=== PATIENT | male | born 1990 ===

== ENCOUNTER 2018-05-28 13:01 | Day surgery (SDC) | payer OTHER ==
[2018-05-28 13:02] VITALS: BMI 32.1
[2018-05-28 14:24] LABS: BASO % 0.2 % (0.0-2.0); EOS # 0.2 K/uL (0.0-0.7); EOS % 2.6 % (0.0-4.0); HEMOGLOBIN 14.6 g/dL (12.0-18.0); LYMPH % 43.7 % (20.0-40.0); MEAN CELL VOLUME 80.3 fL (80.0-94.0); MEAN CORPUSCULAR HEMOGLOBIN 27.8 pg (27.0-31.0); MEAN CORPUSCULAR HGB CONC 34.6 g/dL (33.0-37.0); MEAN PLATELET VOLUME 6.5 fL (7.2-11.7); MONO # 0.7 K/uL (0.0-0.8); MONO % 9.8 % (0.0-10.0); NEUT % 43.7 % (50.0-75.0); RBC 5.25 Mil/uL (4.40-5.90); RED CELL DISTRIBUTION WIDTH 13.2 % (11.5-14.5); WHITE BLOOD COUNT 6.9 K/uL (4.8-10.8)
[2018-05-28] MEDS ORDERED: Lidocaine 2% Jelly (Uro-Jet) ONE (14:27)
[2018-05-28] MEDS ORDERED: Iohexol 240 (50 ml) ONE (14:27)
[2018-05-28] MEDS ORDERED: cefTRIAXone 1 gm 1 GM/100 ML BAG IVPB ONE (14:27)
[2018-05-28 14:34] LABS: SQUAMOUS EPITHIAL < 1 /hpf (0-5); URINE BILIRUBIN NEGATIVE (NEGATIVE); URINE BLOOD 2+ (NEGATIVE); URINE CLARITY Clear (Clear); URINE COLOR Straw (YELLOW); URINE GLUCOSE (UA) NORMAL (Normal); URINE LEUKOCYTE ESTERASE 2+ Leu/uL (Negative); URINE PROTEIN NEGATIVE (NEGATIVE); URINE UROBILINOGEN NORMAL mg/dL (0.2-1.0)
[2018-05-28 14:36] LABS: BLOOD UREA NITROGEN 12 mg/dL (9-20); GFR NON-AFRICAN AMERICAN > 60
[2018-05-28 14:39] LABS: ALB/GLOB RATIO 1.2 (1.0-2.1); ALBUMIN 4.1 g/dL (3.5-5.0); ALT/SGPT 67 U/L (21-72); AST/SGOT 58 U/L (17-59)
[2018-05-28] MEDS ORDERED: Gentamicin 80 mg in 0.9% NS 80 MG/100 ML BAG IVPB ONE (15:19)
[2018-05-28] MEDS ORDERED: Midazolam 2 MG/2 ML VIAL ONE (15:22)
[2018-05-28] MEDS ORDERED: Propofol 10 mg/ml Inj (20 ML) ONE (15:23)
[2018-05-28] MEDS ORDERED: Oxycodone/Acetaminophen 5/325 mg Tab PO PRN (15:29)
[2018-05-28] MEDS ORDERED: Ciprofloxacin 400mg/200ml D5W 400 MG/200 ML BAG IVPB SCH (16:00)
[2018-05-28] MEDS ORDERED: ePHEDrine 50 mg/ml Inj ONE (16:01)
--- NOTE | 2018-05-28 16:52 | C.PDOC ---
History Of Present Illness 28 y/o male presents to the ED, sent in by Dr. Reyna Granger for persistent flank pain. Patient states he recently had lithotripsy and laser for kidney stone. He continues to have left-sided back pain after procedure. Denies any dysuria, fever, chills, nausea, or vomiting. Time Seen by Provider: 05/28/18 13:54 Chief Complaint (Nursing): Male Genitourinary History Per: Patient History/Exam Limitations: no limitations Onset/Duration Of Symptoms: Persistent Current Symptoms Are (Timing): Still Present Quality Of Discomfort: "Pain" Past Medical History Reviewed: Historical Data, Nursing Documentation, Vital Signs Vital Signs: Last Vital Signs Temp 98.3 F 05/28/18 13:09 Pulse 70 05/28/18 14:41 Resp 18 05/28/18 14:41 BP 112/84 05/28/18 14:41 Pulse Ox 98 05/28/18 14:41 - Medical History PMH: Kidney Stones Other Surgeries: Lithotripsy Family History: States: No Known Family Hx - Social History Hx Alcohol Use: No Hx Substance Use: No Review Of Systems Except As Marked, All Systems Reviewed And Found Negative. Constitutional: Negative for: Fever, Chills Cardiovascular: Negative for: Chest Pain Respiratory: Negative for: Shortness of Breath Gastrointestinal: Negative for: Nausea, Vomiting, Diarrhea Genitourinary: Negative for: Dysuria, Frequency, Incontinence, Hematuria Musculoskeletal: Positive for: Back Pain Neurological: Negative for: Weakness, Dizziness Physical Exam - Physical Exam Appears: Non-toxic, No Acute Distress Skin: Normal Color, Warm, Dry Head: Atraumatic, Normacephalic Eye(s): bilateral: Normal Inspection, PERRL, EOMI Oral Mucosa: Moist Neck: Normal ROM Chest: Symmetrical Cardiovascular: Rhythm Regular, No Murmur Respiratory: Normal Breath Sounds, No Rales, No Rhonchi, No Wheezing Gastrointestinal/Abdominal: Soft, No Tenderness, No Distention, No Guarding Back: CVA Tenderness (Left), No Vertebral Tenderness Extremity: Bilateral: Atraumatic, Normal Color And Temperature, Normal ROM Pulses: Left Dorsalis Pedis: Normal, Right Dorsalis Pedis: Normal Neurological/Psych: Oriented x3 ED Course And Treatment - Laboratory Results Result Diagrams: 05/28/18 14:21 05/28/18 14:21 O2 Sat by Pulse Oximetry: 98 (RA) Pulse Ox Interpretation: Normal Medical Decision Making Medical Decision Making: Impression: Persistent pain Plan: --Labs --Paged patient's urologist [id number] Reyna Granger, patient to be admitted for same day surgery SDS. Disposition Counseled Patient/Family Regarding: Diagnosis - Disposition Disposition: HOSPITALIZED Disposition Time: 14:12 Condition: GOOD - Clinical Impression Clinical Impression: Renal calculus - Scribe Statement The provider has reviewed the documentation as recorded by the Chela Figueroa Provider Attestation: All medical record entries made by the Chela were at my direction and personally dictated by me. I have reviewed the chart and agree that the record accurately reflects my personal performance of the history, physical exam, medical decision making, and the department course for this patient. I have also personally directed, reviewed, and agree with the discharge instructions and disposition.
[2018-05-28] MEDS ORDERED: HYDROmorphone 0.5 mg/0.5 ml ISec ONE ×2 (16:55→17:36)
[2018-05-28] MEDS: HYDROmorphone 0.5 mg/0.5 ml ISec IVP PRN ×2 (16:55→17:05)
[2018-05-28] MEDS ORDERED: HYDROmorphone 0.5 mg/0.5 ml ISec IVP PRN ×2 (17:36→17:37)
[2018-05-28 18:17] VITALS: RESP 18
[2018-05-28 18:44] VITALS: BP 113/69; PULSE 73; TEMP 97.9
[2018-05-29 00:05] VITALS: O2SAT 98
--- NOTE | 2018-05-29 09:15 | RAD ---
Date of service: 05/28/2018 PROCEDURE: Intraoperative Fluoroscopy. HISTORY: LEFT URETERAL STONE FINDINGS: Fluoroscopic assistance was provided. Fluoroscopy time = 32.2 sec. Radiation dose = 1.19 mGy-cm. Please refer to the operative report from COLBY Albrecht, , MD [facility].
--- NOTE | 2018-05-29 16:58 | RAD ---
Date of service: 05/28/2018 HISTORY: LEFT URETERAL STONE COMPARISON: None available. FINDINGS: BOWEL: Normal. No obstruction. No free air. BONES: Normal. OTHER FINDINGS: Extensive left urolithiasis burden projects over the left upper quadrant. A 3.6 cm x 8.0 mm calculus collection is present this projects over the expected position of the left intra and extra renal pelvis. Some calculus fragmentation of it along its inferior aspect is possible making 2 smaller fragments-the measurements described above are of the conglomerate of both. Two smaller calculi projecting over the left upper quadrant-involving the left mid and lower pole of the kidney as well as projecting over the left proximal ureteral stent here. The proximal left ureteral stent is in the expected location of the intrarenal pelvis and/or towards the left upper collecting system. The distal projects over the expected bladder. The bladder appears mild-moderately distended. A few left hemipelvic phleboliths 1 mm or less in size are noted. Bilateral inferior sacroiliac sclerotic arthrosis left greater than right noted. IMPRESSION: Left calculus burden as detailed above. Double-J left ureteral stent in place as above.
--- NOTE | 2018-05-30 06:44 | HP ---
UROLOGY ADMISSION REASON FOR ADMISSION: Emergently for severe renal colic and stent pain. We are going to see the plan listed above. HISTORY OF PRESENT ILLNESS: This is a very pleasant gentleman who initially presented with a gigantic stone. He refuses percutaneous nephrostolithotomy. We initially just managed it with ESWL with almost no results. We then did cysto, stent, ureteroscopy. These were all done elsewhere. Now, he has the stent in, and he states the stent is bothering him. He has not really passed so much stone so we are planning procedure today to do a cystoscopy, ureteroscopy, and for the laser lithotripsy by x-ray criteria. I have looked to the x-rays closely, but the stones looks a little broken and it is definitely a different size. We will need to do a more aggressive treatment (I have also discussed the patient my real best recommendation for him is to do a percutaneous nephrostolithotomy) it is about 2 centimeters, and at this point, it is not responding well. And that would be my recommendation. I did discuss with him other options, particularly second opinions, going to near . I discussed many many options. He is here today for further plan. Past medical and surgical history, otherwise, remarkable. A 28-year-od gentleman. Socially, lives here with his . He is also . He worked . Review of systems, as above. PHYSICAL EXAMINATION: GENERAL: A well-nourished male, in no apparent distress. VITAL SIGNS: Within normal limits, included in the chart. LUNGS: Clear. HEART: Normal S1, S2. GENITOURINARY: Normal male phallus. No testicular masses. ABDOMEN: Nontender. No flank mass appreciated. The abdomen is distended. No evidence of rebound or guarding. LABORATORY DATA: Charted. DIAGNOSES: Heavy stone burden, urolithiasis, stent pain, and hematuria. Plan as above. This is an relatively emergent admission on this 28-year-old gentleman. He is now progressing well. The plan for today is as follows: 1. Antibiotic prophylaxis. 2. Cystoscopy. 3. Ureteroscopy. I am arranging for a flexible and a rigid ureteroscope breaking many stones as possible, and now we are going to plan to put an actually a larger bore double J-stent, and see if this will drain better and see if it will improve the patient's symptoms. Then further plans, we will follow. Perhaps, after this, we will consider a shock wave lithotripsy, although my best recommendation for the patient is to consider a second opinion, may be somebody else can help him with ureteroscopy, laser lithotripsy, or actually a percutaneous nephrolithotomy. Further plans to follow depending on the findings. ADDENDUM: The procedure actually went terrifically well. We are able to laser lot of the stones. The stone sites looks much different by x-ray criteria, and we also put an 8-Thai double J-stent. The plan now therefore in this addendum is antibiotics. Monitor the stone output, stone analysis, and then plan for shock wave when he is feeling better. Dominik Granger MD
--- NOTE | 2018-06-06 05:24 | OP ---
PROCEDURE DATE: 05/28/2018 UROLOGY OPERATIVE REPORT PREOPERATIVE DIAGNOSES: Urolithiasis, hematuria, tremendous heavy stone burden. All on the left side. POSTOPERATIVE DIAGNOSES: Urolithiasis, hematuria, tremendous heavy stone burden. All on the left side. Much improved as far as I could tell for the stones. Much less stones than initially seen. PROCEDURES TODAY: Cystoscopy, removal of left double-J stent, left ureteroscopy, left renoscopy done with a rigid ureteroscope and also with flexible ureteroscope and laser lithotripsy of the stone and insertion of a left double-J stent. COMPLICATIONS: There were no complications. BLOOD LOSS: Less than 10 mL. At the termination of procedure, the patient has even less stones. We are making real progress on the stone lasting. At the termination of the procedure, the patient has a good double-J stent in place. UROLOGY OPERATIVE FINDINGS: 1. Normal anterior urethra, no stricture. 2. The veru is minimally visually occlusive. All within normal limits for age. 3. The ureteral orifice is within normal limits. 4. The stones were identified in the left proximal kidney, and we were able to laser them. 4. We also did a retrograde and we were able to see that with the flexible scope. We actually basically went to every calyx, and we were able to laser it really well. The procedure went extremely well. There were no complications. INDICATIONS: See history and physical for the details. Very pleasant gentleman here now. We initially started with a shockwave. We did a ureteroscopy and laser lithotripsy. I had a chance to review the films. Despite the fact that the x-ray report officially read, it does not make much comment and in fact, it even says that there is no film for comparison or set of films in the computer. I had a chance to review the films and it looks much improved. The patient is beginning to pass stones. I discussed the options. He is getting little impatience with the stent in place and it is causing some discomfort, and therefore I will bring him back sooner rather than later and give him a little more time, but we know we blasted the stones well last time at the stone center. It is a heavy stone burden. I had explained to the patient to begin with my recommendation was to consider percutaneous nephrostolithotomy whether by me or whether another urologist. I had also discussed with him the possibility for going through ureteroscopy, laser lithotripsy in [facility]. I have given him the name of Dr. Aubrey Macias. But after discussing the options with the patient and his , they preferred to stay here, and I told them we can take care of it. It may take a few trips. But we would be able to relieve him of his stone burden. DESCRIPTION OF PROCEDURE: After obtaining informed consent, the patient was brought into the OR, placed on the table. Routine monitors were placed. A time-out was called to confirm the patient, positioning, etc. The patient was wearing Venodyne boots. Time-out was called. Antibiotics were given. Positioning, we confirmed the patient. Prior to beginning procedure, we also did a candy catcher films which confirmed the stent, the stones, etc. Under sterile technique, the cystoscope was introduced. The entire procedure was done with a camera and also with the fluoroscopic imaging. My assistant auto center manager was able to see well what we were doing and we were able to identify everything. There was a normal anterior urethra, no strictures. [place] was visually not occlusive. There was basically a small little prostate. . The ureteral orifice was identified easily with the old stent removed. We pulled it out and we passed the wire up to the kidney without any difficulty. We now went adjacent with a semi-rigid ureteroscope. He had many stones within the ureter, and they were all small in size. They should pass as the best way by themselves. We now introduced rigid ureteroscope up to the renal pelvis. We put a second wire through it. We now removed it under direct vision. We put a double-J stent once we put a flexible ureteroscope. Basically, with the flexible ureteroscope, I was unable to go through every calyx as easily. We had great visualization. We began lasering when we identified the stones. We just lasered and lasered as quickly as efficiently as we can to break up all the stones. We used the holmium YAG laser. We set our settings with a frequency of about 3 to 5 MHz and a power of about 2 joules. As best, he tolerated with the most amount of energy and slowest frequency to break the stone. We broke really well. We fragmented nicely. We had multiple pictures in the chart. After we worked a while on the some stones, there were really not any major gigantic stones left over that had not broken. But at this point, also the vision became a little bit blurry. So we decided to terminate the procedure. But it looked like we had made tremendous amounts of progress. We had a wire up in the kidney. We put a double-J stent in. We confirmed our positioning. We had the safety wire and then we had a second wire. We put the double-J stent with the second wire. We confirmed our positioning. The patient tolerated the procedure well without complications. The bladder was emptied and the cystoscope was removed. NOTE: We left the patient with the stent with no dangles. The patient tolerated the procedure well without complications. ADDENDUM: We will provide antibiotics for the patient. We are also going to see the followup x-ray and once we have more information on the patient in this regard, we are going to plan for further treatment. We are going to see in ESWL and then shockwave lithotripsy and then stent removal versus ureteroscopy. I explained to the patient that we were doing tremendous stone burden. We are going to try to decrease the number of the procedures. We are going to see how the patient does clinically. Today's procedure itself went well. No complications. We will follow the patient. We will send him home with antibiotic prophylaxis. He is feeling well on antibiotic prophylaxis and analgesics as needed. Dominik Granger MD
--- NOTE | 2018-06-06 07:39 | HP ---
UROLOGY URGENT ADMISSION REASON FOR ADMISSION: Treatment of kidney stones. HISTORY OF PRESENT ILLNESS: Mr. Reynolds is a very pleasant young gentleman who is being admitted now for further treatment of stones. Initially see previous dictated notes. The [facility] [place] [facility] just a shockwave lithotripsy. At that time, I explained to the patient, he has a heavy stone burden, and I did not think this would work, but he wanted to give it a shot. We did a shock-wave lithotripsy with no stent for a very large stone. Since then, he had passed very few stones. Now, we will bring him in for a cystoscopy, ureteroscopy, laser lithotripsy of his stones, and exchange of his stent. Then further plans will follow. I explained to him with such a large stone burden, we even discussed the idea of percutaneous nephrolithotomy. We also discussed the idea of going for a second opinion, going to [facility]. I mentioned to him Dr. Aubrey Macias where I sent some of my complicated stones. But after discussing all the various options, he is here now today for ureteroscopy and laser lithotripsy. See below. PAST MEDICAL/SURGICAL HISTORY: Essentially unremarkable. No history of [place] or CVA. SOCIAL HISTORY: Essentially unremarkable. , comes with his to the office visit. Otherwise unremarkable. No history of alcohol abuse. No history of drug abuse. REVIEW OF SYSTEMS: No weight loss, chest pain, shortness of breath. He has been feeling not so well since he had this initial set of treatments today. But now, he has been feeling better with the stent in place. See previous notes. We had brought him initially to the [facility] center for shockwave, and then we brought him for a cystoureteroscopy. He is here now for followup. Since that last treatment, he has been passing a lot of stones. We are here now to do more. I explained to the patient that percutaneous treatments may be less numbers of treatment but a little more invasive, possibility to do ureteroscopy, lithotripsy. See the plans as below. He is here today for a second ureteroscopy. Past medical and surgical history is as listed. MEDICATIONS: See chart. ALLERGIES: SEE CHART. PHYSICAL EXAMINATION: GENERAL: Well-nourished male in no apparent distress. VITAL SIGNS: Currently, vital signs are within normal limits. LUNGS: Clear. HEART: Normal S1 and S2. ABDOMEN: Overall soft. LYMPHATIC: There is no cervical or axillary lymphadenopathy. GENITOURINARY: He has normal phallus. No discharge. No testicular masses. RECTAL: Deferred to 10 to 20 g of prostate, really an unremarkable prostate. LABORATORY DATA: See chart. CT scan, x-rays all noted in the chart. DIAGNOSES: 1. Urolithiasis. 2. Hematuria. 3. Hydronephrosis. 4. Intermittent flank pain with tremendously heavy stone burden. PLAN: As follows. I discussed the options with the patient at length. He previously had a shock-wave lithotripsy that is really not much helpful. I discussed that with the patient. I discussed with him specifically what I mentioned. I gave pictures and I discussed with him the AUA guidelines and recommendations, but at that time, he did not want a stent. I also discussed with him the ideal way in terms of guidelines, the possibility of percutaneous nephrostolithotomy versus ureteroscopy laser lithotripsy and the need for recurrent treatment. At this point, we are going to bring him to the hospital. We are going to bring him to the OR for cystoscopy, ureteroscopy, laser lithotripsy, and a stent exchange. We already did last week. We made impact upon the stone. So the plans today are as follows. 1. Antibiotic prophylaxis. 2. Ureteroscopy, laser lithotripsy, and possible stone basketing, and stent exchange and then further plans for followup. ADDENDUM: In terms of the reading on the x-ray films, there is no report. I have made a phone call to Dr. Vargas. ____ late this week. Noting that in his report it says no previous stones for comparison, but in fact the patient does have some previous stones here and to me it looks markedly different. We are going to await his return and then readjust the films and maybe re-evaluate films from an instructional standpoint. All these have been explained to the patient and his in great detail. We are going to plan to proceed. Dominik Granger MD
== END 2018-05-28 18:50 | disposition home or self-care (01) ==
LOC: C.ER 13:01 → C.SDS 13:01
PROVIDERS: ATTEND Urology
DX: N13.2 Hydronephrosis with renal and ureteral calculous obstruction (principal); Z87.442 Personal history of urinary calculi
CPT/HCPCS: 36415; 52356; 74018; 80053; 81001; 85025; 87086; 99285; C1769; C2617; J0696; J0744; J1170; J1580; J2405; J7120

== ENCOUNTER 2018-05-31 19:12 | Emergency (ER) | payer OTHER ==
[2018-05-31 19:12] VITALS: BMI 32.1
[2018-05-31] MEDS ORDERED: Sodium Chloride 0.9% 1,000 ML IV SCH (19:45)
[2018-05-31 19:59] LABS: BASO # 0.1 K/uL (0.0-0.2); EOS # 0.2 K/uL (0.0-0.7); EOS % 1.5 % (0.0-4.0); HEMOGLOBIN 14.4 g/dL (12.0-18.0); LYMPH # 3.4 K/uL (1.0-4.3); LYMPH % 27.5 % (20.0-40.0); MEAN CELL VOLUME 80.1 fL (80.0-94.0); MEAN CORPUSCULAR HEMOGLOBIN 27.5 pg (27.0-31.0); MEAN CORPUSCULAR HGB CONC 34.4 g/dL (33.0-37.0); MEAN PLATELET VOLUME 6.6 fL (7.2-11.7); MONO # 1.2 K/uL (0.0-0.8); MONO % 10.1 % (0.0-10.0); NEUT # 7.3 K/uL (1.8-7.0); NEUT % 59.9 % (50.0-75.0); RBC 5.24 Mil/uL (4.40-5.90); RED CELL DISTRIBUTION WIDTH 13.1 % (11.5-14.5); WHITE BLOOD COUNT 12.2 K/uL (4.8-10.8)
[2018-05-31 20:07] LABS: SQUAMOUS EPITHIAL 9 /hpf (0-5); URINE BILIRUBIN NEGATIVE (NEGATIVE); URINE BLOOD 3+ (NEGATIVE); URINE CLARITY Hazy (Clear); URINE COLOR Yellow (YELLOW); URINE GLUCOSE (UA) NORMAL (Normal); URINE HYALINE CAST 0-2 /lpf (0-2); URINE LEUKOCYTE ESTERASE 2+ Leu/uL (Negative); URINE PROTEIN 2+ mg/dL (NEGATIVE); URINE UROBILINOGEN NORMAL mg/dL (0.2-1.0)
[2018-05-31 20:22] LABS: ALB/GLOB RATIO 1.2 (1.0-2.1); ALBUMIN 4.2 g/dL (3.5-5.0); ALT/SGPT 74 U/L (21-72); AST/SGOT 78 U/L (17-59); BLOOD UREA NITROGEN 12 mg/dL (9-20); CALCIUM 9.3 mg/dl (8.6-10.4); GFR NON-AFRICAN AMERICAN > 60; LIPASE 32 U/L (23-300)
[2018-05-31 22:27] VITALS: BP 105/69; PULSE 69; RESP 18; TEMP 98.4; O2SAT 97
--- NOTE | 2018-05-31 22:52 | C.PDOC ---
History Of Present Illness 28 year old male presents to the ED c/o right sided flank and abdominal pain for the past 1 day. Patient had recent left urethral stent . Patient denies fever, chills, nausea, vomit, diarrhea, injury, fall, trauma. Time Seen by Provider: 05/31/18 19:22 Chief Complaint (Nursing): Abdominal Pain History Per: Patient History/Exam Limitations: no limitations Onset/Duration Of Symptoms: Days (1) Current Symptoms Are (Timing): Still Present Location Of Pain/Discomfort: RUQ, RLQ Radiation Of Pain To:: Back Quality Of Discomfort: "Pain" Associated Symptoms: Urinary Symptoms. denies: Nausea, Vomiting, Diarrhea Recent travel outside of the [place]: No Additional History Per: Patient Past Medical History Reviewed: Historical Data, Nursing Documentation, Vital Signs Vital Signs: Last Vital Signs Temp 98.4 F 05/31/18 22:15 Pulse 69 05/31/18 22:15 Resp 18 05/31/18 22:15 BP 105/69 05/31/18 22:15 Pulse Ox 97 05/31/18 22:15 - Medical History PMH: Kidney Stones Surgical History: No Surg Hx Family History: States: Unknown Family Hx - Social History Hx Alcohol Use: No Hx Substance Use: No Review Of Systems Constitutional: Negative for: Fever, Chills Cardiovascular: Negative for: Chest Pain Respiratory: Negative for: Shortness of Breath Gastrointestinal: Positive for: Abdominal Pain. Negative for: Nausea, Vomiting, Diarrhea Musculoskeletal: Positive for: Back Pain Skin: Negative for: Rash Neurological: Negative for: Weakness, Numbness, Headache Physical Exam - Physical Exam Appears: Non-toxic, No Acute Distress Skin: Normal Color, Warm, Dry Head: Atraumatic, Normacephalic Eye(s): bilateral: Normal Inspection Oral Mucosa: Moist Neck: Normal ROM, Supple Chest: Symmetrical Cardiovascular: Rhythm Regular Respiratory: Normal Breath Sounds, No Rales, No Rhonchi, No Wheezing Gastrointestinal/Abdominal: Soft, No Tenderness, No Guarding, No Rebound Back: CVA Tenderness (bilateral ) Extremity: Normal ROM, No Tenderness, No Swelling Neurological/Psych: Oriented x3, Normal Speech, Normal Cognition Gait: Steady ED Course And Treatment - Laboratory Results Result Diagrams: 05/31/18 19:54 05/31/18 19:54 O2 Sat by Pulse Oximetry: 97 (ON RA) Pulse Ox Interpretation: Normal - CT Scan/US CT abd/pelvis Other Rad Studies (CT/US): Read By Radiologist, Radiology Report Reviewed CT/US Interpretation: EXAM: CT Abdomen without IV contrast. CLINICAL HISTORY: Right flank pain, r/u kidney stone. TECHNIQUE: Axial computed tomography images of the abdomen and pelvis without intravenous contrast. 3023 mGy-cm. CONTRAST: Without. COMPARISON: None provided. FINDINGS: LUNG BASES: There is a groundglass infiltrate involving the posterior basal segment of the right lung with multiple nodular densities within it. Scarring left pulmonary base. The heart is normal in size. Right posterior basal ground glass infiltrate in containing multiple nodular densities. Suggest noncontrast CT of the chest if the patient can breath-hold. LIVER: Unremarkable. GALLBLADDER AND BILE DUCTS: The gallbladder appears within normal limits. No radioopaque gallstones are seen. No biliary ductal dilatation is evident. PANCREAS: Unremarkable. SPLEEN: Unremarkable. ADRENAL GLANDS: Unremarkable. 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 The left side demonstrates multiple large calcifications. There is both a large calcification and the superior end of the double pigtail nephroureteral stent in the left renal pelvis. The distal end of the stent appears to be coiled at the UVJ. There is no hydronephrosis. 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 Distal end of left nephroureteral stent appears to be positioned in the UVJ. STOMACH AND BOWEL: Unremarkable appe arance of the stomach and bowel. No evidence of bowel obstruction. No evidence suggesting enteritis or colitis. APPENDIX: No evidence of acute appendicitis on CT examination. PERITONEUM: No free fluid. No free air. LYMPH NODES: No lymphadenopathy is evident. VASCULATURE: No evidence of abdominal aortic aneurysm. BONES: No aggressive appearing osseous lesion. No acute osseous pathology evident. MISCELLANEOUS: The right ureter is not identified. There are no suspicious right-sided calcifications to account for the patient's symptoms. 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 Distal end of left nephroureteral stent appears to be positioned in the UVJ. Right posterior basal ground glass infiltrate in containing multiple nodular densities. Suggest noncontrast CT of the chest if the patient can breath-hold. . Electronically signed on May 31, 2018 9:38:23 PM EST by: Nhan Farmer M.D., Certified by [facility] Medical Decision Making Medical Decision Making: Plan: * CT abd/pelvis * Labs * IV fluids * Toradol 30 mg IVP * Urine culture * UA Spoke with Dr. Elkin Yang, patient's antibiotics will be changed based on CT read. Patient will follow up tomorrow with Dr. Granger in morning in his office. Disposition - Disposition Referrals: Trey Granger MD [Staff Provider] - Disposition: HOME/ ROUTINE Disposition Time: 22:00 Condition: IMPROVED Additional Instructions: THOMAS STRANGE, thank you for letting us take care of you today. The emergency medical care you received today was directed at your acute symptoms. If you were prescribed any medication, please fill it and take as directed. It may take several days for your symptoms to resolve. Return to the Emergency Department if your symptoms worsen, do not improve, or if you have any other problems. Please contact your doctor or call one of the physicians/clinics you have been referred to that are listed on the Patient Visit Information form that is included in your discharge packet. Bring any paperwork you were given at discharge with you along with any medications you are taking to your follow up visit. Our treatment cannot replace ongoing medical care by a primary care provider outside of the emergency department. Thank you for allowing the [facility] team to be part of your care today. Follow up with Dr. Granger tomorrow morning for re-evaluation and further management. Prescriptions: levoFLOXacin [Levaquin] 500 mg PO DAILY #7 tab Instructions: Kidney Stones (DC) Forms: [employer] (Hebrew) - Clinical Impression Clinical Impression: Renal calculus - Scribe Statement The provider has reviewed the documentation as recorded by the Scribe Oli Busby All medical record entries made by the Scribe were at my direction and personally dictated by me. I have reviewed the chart and agree that the record accurately reflects my personal performance of the history, physical exam, medical decision making, and the department course for this patient. I have also personally directed, reviewed, and agree with the discharge instructions and disposition.
--- NOTE | 2018-06-01 08:53 | CT ---
Date of service: 05/31/2018 PROCEDURE: CT Abdomen and Pelvis without intravenous contrast HISTORY: right flank pain - stent on left COMPARISON: None. TECHNIQUE: Technique. Contrast dose: Radiation dose: Total exam DLP = 1023.6 mGy-cm. This CT exam was performed using one or more of the following dose reduction techniques: Automated exposure control, adjustment of the mA and/or kV according to patient size, and/or use of iterative reconstruction technique. FINDINGS: LOWER THORAX: Bibasilar infiltrates, right greater than left. LIVER: Unremarkable. No gross lesion or ductal dilatation. GALLBLADDER AND BILE DUCTS: Unremarkable. PANCREAS: Unremarkable. No gross lesion or ductal dilatation. SPLEEN: Unremarkable. ADRENALS: Unremarkable. No mass. 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 Left ureteral stent distal tip in the bladder. VASCULATURE: Unremarkable. No aortic aneurysm. No aortic atherosclerotic calcification or mural plaque present. BOWEL: Unremarkable. No obstruction. No gross mural thickening. APPENDIX: Unremarkable. Normal appendix. PERITONEUM: Unremarkable. No free fluid. No free air. LYMPH NODES: Unremarkable. No enlarged lymph nodes. BLADDER: Unremarkable. REPRODUCTIVE: Unremarkable. BONES: No acute fracture. OTHER FINDINGS: None. 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 Left ureteral stent distal tip in the bladder. Proximal limb in the left renal pelvis
== END 2018-05-31 22:27 | disposition home or self-care (01) ==
LOC: C.ER 19:12
DX: N20.0 Calculus of kidney (principal)
CPT/HCPCS: 74176; 80053; 81001; 83690; 85025; 87086; 96374; 99285; J1885; J7030

== ENCOUNTER 2018-06-05 03:09 | Inpatient (IN) | payer OTHER ==
--- NOTE | 2018-06-05 03:24 | C.PDOC ---
History Of Present Illness 28 year old male presents to the ED c/o right flank, lower back pain. Patient states he took Ibuprofen at 02:45 with no relief. Patient states he has been taking levaquin for a UTI. Patient had a STNt placed, lithotripsy done. Patient had a CT scan done on 05/31 which showed questionable right lower lobe infiltrate, horseshoe kidney and stent. Patient denies fever, chills, nausea, vomit, diarrhea, rash, weakness, numbness. Time Seen by Provider: 06/05/18 03:24 Chief Complaint (Nursing): Back Pain History Per: Patient History/Exam Limitations: no limitations Onset/Duration Of Symptoms: Days Current Symptoms Are (Timing): Still Present Quality Of Discomfort: "Pain" Previous Symptoms: Back Pain Recent travel outside of the [place]: No Additional History Per: Patient Past Medical History Reviewed: Historical Data, Nursing Documentation, Vital Signs Vital Signs: Last Vital Signs Temp 97.9 F 06/05/18 03:15 Pulse 100 H 06/05/18 03:15 Resp 22 06/05/18 03:15 BP 127/89 06/05/18 03:15 Pulse Ox 99 06/05/18 03:15 - Medical History PMH: Kidney Stones Surgical History: No Surg Hx Family History: States: Unknown Family Hx - Social History Hx Alcohol Use: No Hx Substance Use: No Review Of Systems Constitutional: Negative for: Fever, Chills Cardiovascular: Negative for: Chest Pain Respiratory: Negative for: Shortness of Breath Gastrointestinal: Positive for: Abdominal Pain. Negative for: Nausea, Vomiting, Diarrhea Genitourinary: Negative for: Dysuria Musculoskeletal: Positive for: Back Pain Skin: Negative for: Rash Neurological: Negative for: Weakness, Numbness Physical Exam - Physical Exam Appears: Non-toxic, No Acute Distress Skin: Warm, Dry Head: Normacephalic Eye(s): bilateral: Normal Inspection Oral Mucosa: Moist Neck: Supple Chest: Symmetrical Cardiovascular: Rhythm Regular Respiratory: No Rales, No Rhonchi, No Wheezing Gastrointestinal/Abdominal: Soft, No Tenderness, No Guarding, No Rebound Back: CVA Tenderness (bilateral) Extremity: Bilateral: Atraumatic, Normal Color And Temperature, Normal ROM Neurological/Psych: Oriented x3, Normal Speech, Normal Cognition Gait: Steady ED Course And Treatment - Laboratory Results Result Diagrams: 06/05/18 03:42 06/05/18 03:42 O2 Sat by Pulse Oximetry: 99 (ON RA) Pulse Ox Interpretation: Normal Progress Note: Plan: - VBG. - Labs. - IV fluids. - Toradol 30 mg IVP. - Zofran 4 mg IVP. - UA Disposition Counseled Patient/Family Regarding: Studies Performed, Diagnosis - Disposition Disposition Time: 03:24 Condition: FAIR Forms: [employer] (Syriac) - Clinical Impression Clinical Impression: Abdominal pain, Elevated liver enzymes - Scribe Statement The provider has reviewed the documentation as recorded by the Scribe Oli Busby All medical record entries made by the Scribe were at my direction and personally dictated by me. I have reviewed the chart and agree that the record accurately reflects my personal performance of the history, physical exam, medical decision making, and the department course for this patient. I have also personally directed, reviewed, and agree with the discharge instructions and disposition. Physician Patient Turnover Patient Signed Over To: Leigh Law Handoff Comments: pending us, re-eval and dispo
[2018-06-05] MEDS ORDERED: Sodium Chloride 0.9% 1,000 ML IV ONE ×2 (03:26→04:11)
[2018-06-05 03:27] VITALS: BMI 29.8
[2018-06-05] MEDS ORDERED: Sodium Chloride 0.9% 1,000 ML ONE ×2 (03:33→04:21)
[2018-06-05 03:53] LABS: BASO # 0.1 K/uL (0.0-0.2); BASO % 0.8 % (0.0-2.0); EOS # 0.2 K/uL (0.0-0.7); EOS % 2.5 % (0.0-4.0); HEMOGLOBIN 14.1 g/dL (12.0-18.0); LYMPH # 3.6 K/uL (1.0-4.3); LYMPH % 39.4 % (20.0-40.0); MEAN CELL VOLUME 81.1 fL (80.0-94.0); MEAN CORPUSCULAR HEMOGLOBIN 27.4 pg (27.0-31.0); MEAN CORPUSCULAR HGB CONC 33.7 g/dL (33.0-37.0); MEAN PLATELET VOLUME 6.4 fL (7.2-11.7); MONO # 1.1 K/uL (0.0-0.8); MONO % 11.9 % (0.0-10.0); NEUT # 4.1 K/uL (1.8-7.0); NEUT % 45.4 % (50.0-75.0); RBC 5.17 Mil/uL (4.40-5.90)
[2018-06-05 03:58] LABS: ALB/GLOB RATIO 1.2 (1.0-2.1); ALBUMIN 4.2 g/dL (3.5-5.0); ALT/SGPT 214 U/L (21-72); AST/SGOT 113 U/L (17-59); BLOOD UREA NITROGEN 12 mg/dL (9-20); CALCIUM 9.3 mg/dl (8.6-10.4); GFR NON-AFRICAN AMERICAN > 60; LIPASE 45 U/L (23-300)
[2018-06-05 04:15] LABS: VENOUS BLOOD GAS BASE EXCESS -1.2 mmol/L (0.0-2.0); VENOUS BLOOD GAS PCO2 39 mmHg (40-60); VENOUS BLOOD GAS PO2 50 mm/Hg (30-55); VENOUS BLOOD PH 7.39 (7.32-7.43)
[2018-06-05 04:38] LABS: SQUAMOUS EPITHIAL < 1 /hpf (0-5); URINE BACTERIA RARE (<OCC); URINE BILIRUBIN NEGATIVE (NEGATIVE); URINE BLOOD 2+ (NEGATIVE); URINE COLOR Yellow (YELLOW); URINE GLUCOSE (UA) NORMAL (Normal); URINE LEUKOCYTE ESTERASE 3+ Leu/uL (Negative); URINE PROTEIN NEGATIVE (NEGATIVE); URINE UROBILINOGEN NORMAL mg/dL (0.2-1.0)
[2018-06-05 04:41] LABS: URINE CLARITY Hazy (Clear)
--- NOTE | 2018-06-05 09:18 | US ---
Date of service: 06/05/2018 HISTORY: ruq pain, elevated liver enzymes COMPARISON: None. TECHNIQUE: Sonographic evaluation of the right upper quadrant of the abdomen. FINDINGS: LIVER: Measures 13.7 cm in length. Normal echogenicity of the liver parenchyma. No mass. No intrahepatic bile duct dilatation. GALLBLADDER: The gallbladder is contracted and otherwise unremarkable appearing. COMMON BILE DUCT: Measures 2.5 mm. No stones. No dilatation. PANCREAS: The tail of the pancreas is obscured by overlying bowel gas with remainder unremarkable. 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 No definitive obstructive uropathy. Prior left ureteral stent is not clearly identified within the left-sided moiety as previously demonstrated on CT. No perinephric fluid collection appreciable. AORTA: No aneurysmal dilatation. IVC: Unremarkable. OTHER FINDINGS: None . IMPRESSION: No definite pattern of biliary tree dilatation with normal CBD caliber 2.5 mm. The gallbladder is contracted as well. No pericholecystic fluid collection or cholelithiasis. Evaluation the wall gallbladder is poor due to contraction. Horseshoe kidney identified as discussed above without hydronephrosis. Prior left double-J ureteral stent not clearly identified within the left-sided moiety as demonstrated by CT previously.
[2018-06-05] MEDS ORDERED: Iodixanol 320 MG/ML 100 ML BOTTLE IV ONE (10:26)
[2018-06-05] MEDS ORDERED: Enoxaparin 80 mg Syringe SC STA (11:37)
[2018-06-05] MEDS ORDERED: HYDROmorphone 0.5 mg/0.5 ml ISec IVP STA (11:37)
--- NOTE | 2018-06-05 11:37 | CT ---
Date of service: 06/05/2018 PROCEDURE: CT Chest with contrast (Pulmonary Angiogram) HISTORY: R CHEST PAIN r/o PE COMPARISON: None available. TECHNIQUE: Axial computed tomography images were obtained of the chest in the pulmonary arterial phase of enhancement. Coronal and sagittal reformatted images were created and reviewed. Intravenous contrast dose: Visipaque 320, 100 cc Radiation dose: Total exam DLP = 631.63 mGy-cm. This CT exam was performed using one or more of the following dose reduction techniques: Automated exposure control, adjustment of the mA and/or kV according to patient size, and/or use of iterative reconstruction technique. FINDINGS: PULMONARY ARTERIES: Positive for pulmonary artery embolus affecting right lower lobe median and small branches with associated possible infarct or limited asymmetric atelectasis right lower lobe base. Linear atelectasis or fibrosis is seen at the lingula. AORTA: No acute findings. No thoracic aortic aneurysm. No aortic atherosclerotic calcification or mural plaque present. LUNGS: No discrete mass. See discussion in pulmonary artery section above as well. PLEURAL SPACES: Unremarkable. No effusion or pneumothorax. HEART: Trace residual thymic tissue is seen in the anterior upper mediastinum with cardiac size normal. No pulmonary vascular congestion. No pericardial effusion. No distention of the right lateral ventricle or definitive tension on the interventricular septum. The thoracic inlet appears unremarkable. LYMPH NODES: No significant lymphadenopathy appreciated. BONES, CHEST WALL: Unremarkable. No fracture or destructive lesion OTHER FINDINGS: Unremarkable. IMPRESSION: 1. Positive pulmonary embolus right lower lobe medium and small pulmonary branches with associated possible infarct in limited subsegmental right lower lobe versus atelectasis. Linear atelectasis or fibrosis left lower lobe. 2. No evidence of significantly elevated right heart pressures. Findings discussed with Dr. Law with written down and read back verification 06/05/2018 11:20 a.m..
--- NOTE | 2018-06-05 11:47 | CT ---
Date of service: 06/05/2018 PROCEDURE: CT Abdomen and Pelvis with contrast HISTORY: R FLANK PAIN, ABN LFT COMPARISON: None. TECHNIQUE: Following the intravenous administration of iodinated contrast material, a CT examination of the abdomen and pelvis performed from the domes of the diaphragms to the symphysis pubis with reformatted datasets provided in axial, sagittal and coronal planes. Oral contrast was not administered as per referring physician request. Coronal and sagittal reformats were generated. Contrast dose: None added specifically for this exam. Study performed following CT angiogram chest. Radiation dose: Total exam DLP = 1022.67 mGy-cm. This CT exam was performed using one or more of the following dose reduction techniques: Automated exposure control, adjustment of the mA and/or kV according to patient size, and/or use of iterative reconstruction technique. FINDINGS: LOWER THORAX: Right lower lobe infarct or atelectasis. Please see separate chest CT with contrast also performed 06/05/2018. LIVER: Unremarkable. No gross lesion or ductal dilatation. GALLBLADDER AND BILE DUCTS: Unremarkable. PANCREAS: Unremarkable. No gross lesion or ductal dilatation. SPLEEN: Unremarkable. ADRENALS: Unremarkable. No mass. 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 Intrarenal calculi are likely present scattered at the left moiety calices but obscured by excreted iodinated contrast material. Wedge-shaped lucencies at the left-sided moiety are identified number at total 2, suspicious for possible lobar nephronia or renal infarcts. Patient is asymptomatic at the left flank as per discussion with referring physician however. Further clinical correlation is advised. No perinephric reaction. No definitive hydronephrosis. VASCULATURE: Unremarkable. No aortic aneurysm. No aortic atherosclerotic calcification or mural plaque present. BOWEL: The bowel is not appear obstructed but is limited by lack of oral contrast. Moderately prominent retained material scattered at the right greater than left hemicolon with the stomach collapsed. Small bowel appears grossly unremarkable. APPENDIX: Normal appendix. PERITONEUM: Unremarkable. No free fluid. No free air. LYMPH NODES: Unremarkable. No enlarged lymph nodes. BLADDER: Distal segment of a double-J left ureteral stent is identified terminating at the left luminal base with the urinary bladder gurrola may thin diffusely. No definite radiodense urolithiasis. REPRODUCTIVE: Unremarkable. BONES: No acute fracture. OTHER FINDINGS: None. IMPRESSION: 1. No acute right-sided abdominal findings. 2. Double-J left ureteral stent is in situ once again at the left-sided moiety of the horseshoe kidney with distal portion terminating within urinary bladder as well. Large inferior left renal pelvis calculus unchanged in position. A wedge-shaped region of poor enhancement at the left-sided moiety may reflect lobar nephronia or possible infarct with a smaller area faintly seen immediately cephalad to it. Please see discussion above. 3. Moderately prominent retained material in the right hemicolon when compared to the left. Findings discussed with Dr. Law with written down and read back verification 06/05/2018 11:20 a.m..
[2018-06-05] MEDS ORDERED: Enoxaparin 100 mg Syringe ONE (11:54)
[2018-06-05] MEDS ORDERED: Enoxaparin 80 mg Syringe ONE (11:54)
[2018-06-05] MEDS ORDERED: oxyCODONE 10 mg Immediate Release Tab PO PRN (14:45)
--- NOTE | 2018-06-05 18:13 | CP.PCM.CON ---
History of Present Illness - History of Present Illness History of Present Illness: Reason for consultation: right flank and mid back pain 28-year-old male who presented to emergency complaining of right flank/mid back pain for the past 6 days and has been taking ibuprofen with no relief. Patient states he has been taking levaquin for a UTI. Patient had a STNt placed, lithotripsy done. Patient had a CT scan done on 05/31 which showed questionable right lower lobe infiltrate, horseshoe kidney and stent. Patient denies fever, chills, nausea, vomit, diarrhea, rash, weakness, numbness. CT of the chest with contrast showed right pulmonary embolism with no right- sided strain. Patient denies leg swelling or pain. Denies cough, denies palpitation, denies dizziness. Patient saturation 98% on room air. Review of Systems - Review of Systems All systems: reviewed and no additional remarkable complaints except (right flank/mid back pain) Past Patient History - Past Medical History & Family History Past Medical History?: Yes - Past Social History Smoking Status: Never Smoked - RENAL Hx Kidney Stones: Yes - MUSCULOSKELETAL/RHEUMATOLOGICAL Hx Falls: No - GENITOURINARY/GYNECOLOGICAL Hx Bladder Stone: Yes - PSYCHIATRIC Hx Substance Use: No - SURGICAL HISTORY Hx Surgeries: No - ANESTHESIA Hx Anesthesia: No Meds Allergies/Adverse Reactions: Allergies Allergy/AdvReac Type Severity Reaction Status Date / Time No Known Allergies Allergy Verified 05/31/18 19:21 - Medications Medications: Current Medications Enoxaparin Sodium (Lovenox) 100 mg SC Q12 HIREN Ceftriaxone Sodium (Rocephin Iv 1 Gm Duplex) 50 mls @ 100 mls/hr IVPB DAILY [facility]; Protocol Ibuprofen (Motrin Tab) 600 mg PO Q6H PRN PRN Reason: Pain, moderate (4-7) Oxycodone HCl (Oxycodone Immediate Release Tab) 10 mg PO Q6 PRN PRN Reason: Pain, severe (8-10) Last Admin: 06/05/18 15:50 Dose: 10 mg Pantoprazole Sodium (Protonix Ec Tab) 40 mg PO DAILY HIREN Physical Exam - Head Exam Head Exam: ATRAUMATIC, NORMOCEPHALIC - ENT Exam ENT Exam: Mucous Membranes Moist - Neck Exam Neck exam: Positive for: Normal Inspection - Respiratory Exam Respiratory Exam: Clear to Auscultation Bilateral - Cardiovascular Exam Cardiovascular Exam: REGULAR RHYTHM - GI/Abdominal Exam GI & Abdominal Exam: Normal Bowel Sounds, Soft - Extremities Exam Extremities exam: Positive for: normal inspection Results - Vital Signs Recent Vital Signs: Last Vital Signs Temp 98 F 06/05/18 16:42 Pulse 76 06/05/18 16:42 Resp 20 06/05/18 16:42 BP 107/72 06/05/18 16:42 Pulse Ox 99 06/05/18 16:42 - Labs Result Diagrams: 06/05/18 03:42 06/05/18 03:42 Labs: Laboratory Results - last 24 hr 06/05/18 06/05/18 06/05/18 03:27 03:42 03:42 WBC 9.0 RBC 5.17 Hgb 14.1 Hct 41.9 MCV 81.1 MCH 27.4 MCHC 33.7 RDW 13.0 Plt Count 384 MPV 6.4 L Neut % (Auto) 45.4 L Lymph % (Auto) 39.4 [place] % (Auto) 11.9 H Eos % (Auto) 2.5 Baso % (Auto) 0.8 Neut # (Auto) 4.1 Lymph # (Auto) 3.6 [place] # (Auto) 1.1 H Eos # (Auto) 0.2 Baso # (Auto) 0.1 pO2 VBG pH VBG pCO2 VBG HCO3 VBG Total CO2 VBG O2 Sat (Calc) VBG Base Excess VBG Potassium Glucose Lactate Sodium 138 Potassium 4.2 Chloride 102 Carbon Dioxide 25 Anion Gap 16 BUN 12 Creatinine 0.9 Est GFR ( Amer) > 60 Est GFR (Non-Af Amer) > 60 Random Glucose 106 Calcium 9.3 Total Bilirubin 0.5 AST 113 H D ALT 214 H D Alkaline Phosphatase 199 H D Total Protein 7.8 Albumin 4.2 Globulin 3.6 Albumin/Globulin Ratio 1.2 Lipase 45 Venous Blood Potassium Urine Color Yellow Urine Clarity Hazy Urine pH 6.0 Ur Specific [place] 1.009 Urine Protein Negative Urine Glucose (UA) Normal Urine Ketones Negative Urine Blood 2+ H Urine Nitrate Negative Urine Bilirubin Negative Urine Urobilinogen Normal Ur Leukocyte Esterase 3+ H Urine WBC (Auto) 11 H Urine RBC (Auto) 9 H Ur Squamous Epith Cells < 1 Urine Bacteria Rare 06/05/18 04:00 WBC RBC Hgb Hct MCV MCH MCHC RDW Plt Count MPV Neut % (Auto) Lymph % (Auto) [place] % (Auto) Eos % (Auto) Baso % (Auto) Neut # (Auto) Lymph # (Auto) [place] # (Auto) Eos # (Auto) Baso # (Auto) pO2 50 VBG pH 7.39 VBG pCO2 39 L VBG HCO3 23.6 VBG Total CO2 24.8 VBG O2 Sat (Calc) 88.5 H VBG Base Excess -1.2 L VBG Potassium 3.3 L Glucose 89 Lactate 1.3 Sodium 137.0 Potassium Chloride 104.0 Carbon Dioxide Anion Gap BUN Creatinine Est GFR ( Amer) Est GFR (Non-Af Amer) Random Glucose Calcium Total Bilirubin AST ALT Alkaline Phosphatase Total Protein Albumin Globulin Albumin/Globulin Ratio Lipase Venous Blood Potassium 3.3 L Urine Color Urine Clarity Urine pH Ur Specific [place] Urine Protein Urine Glucose (UA) Urine Ketones Urine Blood Urine Nitrate Urine Bilirubin Urine Urobilinogen Ur Leukocyte Esterase Urine WBC (Auto) Urine RBC (Auto) Ur Squamous Epith Cells Urine Bacteria Assessment & Plan (1) Pulmonary emboli Status: Acute Comment: Lovenox 100 mg q12. echocardiogram. Venous Doppler lower extremities
--- NOTE | 2018-06-05 20:47 | CP.PCM.HP ---
Past Patient History - Past Medical History & Family History Past Medical History?: Yes - Past Social History Smoking Status: Never Smoked - RENAL Hx Kidney Stones: Yes - MUSCULOSKELETAL/RHEUMATOLOGICAL Hx Falls: No - GENITOURINARY/GYNECOLOGICAL Hx Bladder Stone: Yes - PSYCHIATRIC Hx Substance Use: No - SURGICAL HISTORY Hx Surgeries: No - ANESTHESIA Hx Anesthesia: No Meds Allergies/Adverse Reactions: Allergies Allergy/AdvReac Type Severity Reaction Status Date / Time No Known Allergies Allergy Verified 05/31/18 19:21 Physical Exam - Constitutional Appears: Well - Head Exam Head Exam: ATRAUMATIC, NORMAL INSPECTION, NORMOCEPHALIC - Eye Exam Eye Exam: EOMI, Normal appearance, PERRL Pupil Exam: NORMAL ACCOMODATION, PERRL - ENT Exam ENT Exam: Mucous Membranes Moist, Normal Exam - Neck Exam Neck exam: Positive for: Normal Inspection - Respiratory Exam Respiratory Exam: Decreased Breath Sounds - Cardiovascular Exam Cardiovascular Exam: REGULAR RHYTHM, +S1, +S2 - GI/Abdominal Exam GI & Abdominal Exam: Diminished Bowel Sounds, Soft - Rectal Exam Rectal Exam: Deferred Results - Vital Signs Recent Vital Signs: Last Vital Signs Temp 98 F 06/05/18 16:42 Pulse 76 06/05/18 16:42 Resp 20 06/05/18 16:42 BP 107/72 06/05/18 16:42 Pulse Ox 99 06/05/18 16:42 - Labs Result Diagrams: 06/05/18 03:42 06/05/18 03:42 Labs: Laboratory Results - last 24 hr 06/05/18 06/05/18 06/05/18 03:27 03:42 03:42 WBC 9.0 RBC 5.17 Hgb 14.1 Hct 41.9 MCV 81.1 MCH 27.4 MCHC 33.7 RDW 13.0 Plt Count 384 MPV 6.4 L Neut % (Auto) 45.4 L Lymph % (Auto) 39.4 [place] % (Auto) 11.9 H Eos % (Auto) 2.5 Baso % (Auto) 0.8 Neut # (Auto) 4.1 Lymph # (Auto) 3.6 [place] # (Auto) 1.1 H Eos # (Auto) 0.2 Baso # (Auto) 0.1 pO2 VBG pH VBG pCO2 VBG HCO3 VBG Total CO2 VBG O2 Sat (Calc) VBG Base Excess VBG Potassium Glucose Lactate Sodium 138 Potassium 4.2 Chloride 102 Carbon Dioxide 25 Anion Gap 16 BUN 12 Creatinine 0.9 Est GFR ( Amer) > 60 Est GFR (Non-Af Amer) > 60 Random Glucose 106 Calcium 9.3 Total Bilirubin 0.5 AST 113 H D ALT 214 H D Alkaline Phosphatase 199 H D Total Protein 7.8 Albumin 4.2 Globulin 3.6 Albumin/Globulin Ratio 1.2 Lipase 45 Venous Blood Potassium Urine Color Yellow Urine Clarity Hazy Urine pH 6.0 Ur Specific [place] 1.009 Urine Protein Negative Urine Glucose (UA) Normal Urine Ketones Negative Urine Blood 2+ H Urine Nitrate Negative Urine Bilirubin Negative Urine Urobilinogen Normal Ur Leukocyte Esterase 3+ H Urine WBC (Auto) 11 H Urine RBC (Auto) 9 H Ur Squamous Epith Cells < 1 Urine Bacteria Rare 06/05/18 04:00 WBC RBC Hgb Hct MCV MCH MCHC RDW Plt Count MPV Neut % (Auto) Lymph % (Auto) [place] % (Auto) Eos % (Auto) Baso % (Auto) Neut # (Auto) Lymph # (Auto) [place] # (Auto) Eos # (Auto) Baso # (Auto) pO2 50 VBG pH 7.39 VBG pCO2 39 L VBG HCO3 23.6 VBG Total CO2 24.8 VBG O2 Sat (Calc) 88.5 H VBG Base Excess -1.2 L VBG Potassium 3.3 L Glucose 89 Lactate 1.3 Sodium 137.0 Potassium Chloride 104.0 Carbon Dioxide Anion Gap BUN Creatinine Est GFR ( Amer) Est GFR (Non-Af Amer) Random Glucose Calcium Total Bilirubin AST ALT Alkaline Phosphatase Total Protein Albumin Globulin Albumin/Globulin Ratio Lipase Venous Blood Potassium 3.3 L Urine Color Urine Clarity Urine pH Ur Specific [place] Urine Protein Urine Glucose (UA) Urine Ketones Urine Blood Urine Nitrate Urine Bilirubin Urine Urobilinogen Ur Leukocyte Esterase Urine WBC (Auto) Urine RBC (Auto) Ur Squamous Epith Cells Urine Bacteria
[2018-06-05] MEDS: Enoxaparin 100 mg Syringe SC SCH (21:37)
[2018-06-05] MEDS ORDERED: Morphine 4 MG/ML VIAL IVP PRN (22:57)
--- NOTE | 2018-06-06 07:15 | CP.PCM.PN ---
Subjective - Date & Time of Evaluation Date of Evaluation: 06/06/18 Time of Evaluation: 08:52 - Subjective Subjective: Medicine Note for Dr. Lon Hughes's Service This is a 28 year old male with PMHx of left horseshoe kidney and ne phrolithiasis (pelvic calculus 1.6 x 1.3 cm) s/p left UVJ stent who is admitted due to right sided chest pain and right sided flank pain. Patient reports he started having kidney issues 2 months ago. Patient has had total 3 lithotripsy procedures and laser treatments as well, with some stone breakage and passage however, patient continues with 1.6 x 1.3 cm stone in the left pelvic calculus. He started to have right sided chest pain and right mid back pain for 4-5 days. Patient admitted to relaxing the past week due to the pain. Denied any recent long bus/car ride or recent flights. Patient reports being active, playing soccer weekly. 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 Denied any current chest pain, shortness of breath, abdominal pain, n/v/d/c, or urinary complaints. PMHx: As noted above PSHx: shockwave lithotripsy, s/p left UVJ stent All: NKDA SHx: Denied any alcohol, tobacco, or illicit drug use; lives with FHx: Denied any family history Urologist: Leo Granger Objective - Vital Signs/Intake and Output Vital Signs (last 24 hours): Temp Pulse Resp BP Pulse Ox 98.9 F 79 20 107/67 97 06/05/18 23:05 06/06/18 04:00 06/05/18 23:05 06/05/18 23:05 06/05/18 23:05 Intake and Output: 06/06/18 06/06/18 06:59 18:59 Intake Total 0 Balance 0 - Medications Medications: Current Medications Enoxaparin Sodium (Lovenox) 100 mg SC Q12 HIREN Last Admin: 06/05/18 21:37 Dose: 100 mg Ceftriaxone Sodium (Rocephin Iv 1 Gm Duplex) 50 mls @ 100 mls/hr IVPB DAILY [facility]EN; Protocol Moxifloxacin HCl (Avelox Iv 400mg/250ml Ns) 400 mg in 250 mls @ 167 mls/hr IVPB Q24H HIREN; Protocol Morphine Sulfate (Morphine) 4 mg IVP Q6 PRN PRN Reason: Pain, moderate (4-7) Ondansetron HCl (Zofran Inj) 4 mg IVP Q6 PRN PRN Reason: Nausea/Vomiting Pantoprazole Sodium (Protonix Ec Tab) 40 mg PO DAILY HIREN Tamsulosin HCl (Flomax) 0.4 mg PO DAILY HIREN - Labs Labs: 06/05/18 03:42 06/05/18 03:42 - Constitutional Appears: No Acute Distress - Head Exam Head Exam: NORMAL INSPECTION, NORMOCEPHALIC - Eye Exam Eye Exam: EOMI, PERRL Pupil Exam: NORMAL ACCOMODATION - ENT Exam ENT Exam: Mucous Membranes Moist - Respiratory Exam Respiratory Exam: Clear to Ausculation Bilateral, NORMAL BREATHING PATTERN - Cardiovascular Exam Cardiovascular Exam: +S1, +S2 - GI/Abdominal Exam GI & Abdominal Exam: Soft, Normal Bowel Sounds. absent: Distended, Tenderness - Extremities Exam Extremities Exam: Normal Inspection. absent: Pedal Edema, Tenderness - Back Exam Back Exam: CVA tenderness (L), NORMAL INSPECTION. absent: CVA tenderness (R) - Neurological Exam Neurological Exam: Alert, Awake, Oriented x3 - Psychiatric Exam Psychiatric exam: Normal Affect, Normal Mood - Skin Skin Exam: Dry, Intact, Normal Color, Warm Assessment and Plan - Assessment and Plan (Free Text) Plan: RLL Pulmonary Embolism - Pulmonary, Dr. Flores consulted Imaging: - CT Chest: 1. Positive pulmonary embolus right lower lobe medium and small pulmonary branches with associated possible infarct in limited subsegmental right lower lobe versus atelectasis. Linear atelectasis or fibrosis left lower lobe. 2. No evidence of significantly elevated right heart pressures. - ECHO: ordered, pending results - Venous Dopplers: ordered, pending results Management: - Hypercoagulable workup sent - Started on therapeutic lovenox, will be transitioned to Eliquis (10mg PO BID for 7 days and the 5mg PO BID after) Nephrolithiasis S/P Left UVJ Replacement (05/29/18) - Urology, Dr. Leo Granger consulted Imaging: - CT Abdomen/ Pelvis (06/05/18): Double-J left ureteral stent is in situ once again at the left-sided moiety of the horseshoe kidney with distal portion terminating within urinary bladder as well. Large inferior left renal pelvis calculus unchanged in position. A wedge-shaped region of poor enhancement at the left-sided moiety may reflect lobar nephronia or possible infarct with a smaller area faintly seen immediately cephalad to it. Management: - Pending reccs as per Urology - UTI noted on UA - Was started on Moxifloxacin 400mg IVP daily - UC and BC ordered Transaminitis Imaging: - Abdominal US (noted on previous admission): Unremarkable Management: - Likely secondary to antibiotics in light of recent urological procedure - Avoid any hepatoxic medications - Hepatitis panel ordered Prophylaxis - GI PPX: Protonix, probiotics - DVT PPX: Currently on Therapuetic Lovenox, SCDs (pending venous doppler to rule out DVTs) All management as per Dr. Lon Hughes, Raven Corbett DO, PGY2
[2018-06-06 08:35] VITALS: RESP 20
[2018-06-06] MEDS ORDERED: cefTRIAXone IV 1 gm in Dextros 50 ML IVPB SCH (10:00)
[2018-06-06] MEDS ORDERED: Moxifloxacin IV 400mg/250ml NS 400 MG/250 ML BAG IVPB SCH (10:00)
--- NOTE | 2018-06-06 10:29 | RAD ---
Date of service: 06/06/2018 HISTORY: compare with previous xray for stone evaluation COMPARISON: 05/30/2018 FINDINGS: BOWEL: Normal bowel gas pattern. Multiple calculi or solitary staghorn calculus in lower pole left kidney, unchanged in morphology. Left ureteral stent, unchanged. There is no calculus currently identified along the course of the left ureteral stent. No right renal calculus identified. No other abnormal intra-abdominal calcifications. BONES: Normal. OTHER FINDINGS: None. IMPRESSION: Left staghorn calculus versus multiple calculi within lower pole left renal collecting system.. Left ureteral stent. No significant interval change.
[2018-06-06] MEDS: Enoxaparin 100 mg Syringe SC SCH ×2 (10:51→22:20)
[2018-06-06] MEDS: Pantoprazole 40 mg EC Tab PO SCH (10:52)
[2018-06-06 14:16] LABS: BASO # 0.1 K/uL (0.0-0.2); BASO % 1.1 % (0.0-2.0); EOS # 0.2 K/uL (0.0-0.7); LYMPH # 2.7 K/uL (1.0-4.3); LYMPH % 34.9 % (20.0-40.0); MEAN CELL VOLUME 81.3 fL (80.0-94.0); MEAN CORPUSCULAR HEMOGLOBIN 27.5 pg (27.0-31.0); MEAN CORPUSCULAR HGB CONC 33.9 g/dL (33.0-37.0); MEAN PLATELET VOLUME 6.9 fL (7.2-11.7); MONO # 0.6 K/uL (0.0-0.8); MONO % 7.9 % (0.0-10.0); NEUT # 4.2 K/uL (1.8-7.0); NEUT % 54.1 % (50.0-75.0); RBC 5.08 Mil/uL (4.40-5.90); RED CELL DISTRIBUTION WIDTH 13.1 % (11.5-14.5); WHITE BLOOD COUNT 7.8 K/uL (4.8-10.8)
[2018-06-06 14:45] LABS: ALB/GLOB RATIO 1.1 (1.0-2.1); ALT/SGPT 134 U/L (21-72); AST/SGOT 54 U/L (17-59); BLOOD UREA NITROGEN 9 mg/dL (9-20); CALCIUM 9.5 mg/dl (8.6-10.4); GFR NON-AFRICAN AMERICAN > 60
[2018-06-06 15:00] LABS: HEPATITIS B SURFACE AG Negative (NEGATIVE)
[2018-06-06 15:06] LABS: HEPATITIS A IGM NEGATIVE (NEGATIVE); HEPATITIS B CORE AB NEGATIVE (NEGATIVE)
[2018-06-06 15:18] LABS: HEPATITIS C ANTIBODY NEGATIVE (NEGATIVE)
--- NOTE | 2018-06-06 15:22 | CP.PCM.PN ---
Subjective - Date & Time of Evaluation Date of Evaluation: 06/06/18 Time of Evaluation: 11:45 - Subjective Subjective: Patient seen and examined at bedside. Resting comfortably in no acute distress. Denies SOB, fever/chills, N/V, dizziness, palpitation, cough. Patient saturation 98% on room air. Hx of left horseshoe kidney and nephrolithiasis. Reports pain is almost gone. 06/[address]: positive pulmonary embolus right lower lobe medium and small pu lmonary branches with associated possible infarct in limited subsegmental right lower lobe versus atelectasis. Linear atelectasis or fibrosis left lower lobe. No evidence of significantly elevated right heart pressures. 06/05 Duplex Scan Lower Extremity Artery: negative F/u echocardiogram. D/C Lovenox, start Eliquis PO tablet Physical therapy Objective - Vital Signs/Intake and Output Vital Signs (last 24 hours): Temp Pulse Resp BP Pulse Ox 97.5 F L 85 20 99/61 L 97 06/06/18 07:40 06/06/18 13:36 06/06/18 07:40 06/06/18 07:40 06/06/18 07:40 Intake and Output: 06/06/18 06/06/18 06:59 18:59 Intake Total 0 Balance 0 - Medications Medications: Current Medications Enoxaparin Sodium (Lovenox) 100 mg SC Q12 [facility] Last Admin: 06/06/18 10:51 Dose: 100 mg Ketorolac Tromethamine (Toradol) 30 mg IVP Q6 PRN PRN Reason: Pain, Mild (1-3) Lactobacillus Acidophilus (Bacid Acidophilus) 1 cap PO BID [facility] Morphine Sulfate (Morphine) 4 mg IVP Q6 PRN PRN Reason: Pain, moderate (4-7) Ondansetron HCl (Zofran Inj) 4 mg IVP Q6 PRN PRN Reason: Nausea/Vomiting Pantoprazole Sodium (Protonix Ec Tab) 40 mg PO DAILY [facility] Last Admin: 06/06/18 10:52 Dose: 40 mg Tamsulosin HCl (Flomax) 0.4 mg PO DAILY [facility] Last Admin: 06/06/18 10:51 Dose: 0.4 mg - Labs Labs: 06/06/18 14:07 06/06/18 14:07 Assessment and Plan (1) Pulmonary emboli Status: Acute
--- NOTE | 2018-06-06 20:14 | CARD ---
APPROVED REPORT Date of service: 06/06/2018 EXAM: Two-dimensional and M-mode echocardiogram with Doppler and color Doppler. INDICATION Pulmonary Embolism 2D DIMENSIONS IVSd0.9 (0.7-1.1cm)Aortic Root (2D)3.4 (2.0-3.7cm) LVDd4.4 (3.9-5.9cm)PWd0.6 (0.7-1.1cm) LA Urvpev40 (18-58mL)LVDs3.1 (2.5-4.0cm) FS (%) 30.5 %LVEF (%)58.2 (>50%) LVEF (Vargas's)56 %IVC0.00 cm M-Mode DIMENSIONS RVDd1.33 (2.1-3.2cm)Left Atrium (MM)2.80 (2.5-4.0cm) IVSd0.78 (0.7-1.1cm)Aortic Root2.34 (2.2-3.7cm) LVDd4.95 (4.0-5.6cm)Aortic Cusp Exc.2.15 (1.5-2.0cm) PWd0.68 (0.7-1.1cm)FS (%) 31 % LVDs3.42 (2.0-3.8cm)LVEF (%)58 (>50%) Mitral Valve MV E Zbssrdbt35.7cm/sMV A Iupjkves62.6cm/sE/A ratio1.5 TDI Lateral E' Peak V20.00cm/sMedial E' Peak V9.77cm/sE/Lateral E'3.7 E/Medial E'7.5 Tricuspid Valve TR Peak [id number]/sTR Peak Gr.48otRhGCUH32foNf LEFT VENTRICLE The left ventricle is normal size. There is normal left ventricular wall thickness. The left ventricular function is normal. The left ventricular ejection fraction is within the normal range. Visually about 65% No regional wall motion abnormalities noted. The left ventricular diastolic function is normal. No left ventricle thrombus noted on this study. There is no ventricular septal defect visualized. There is no left ventricular aneurysm. There is no mass noted in the left ventricle. RIGHT VENTRICLE The right ventricle is normal size. There is normal right ventricular wall thickness. The right ventricular systolic function is normal. ATRIA The left atrium size is normal. The right atrium size is normal. The interatrial septum is intact with no evidence for an atrial septal defect. AORTIC VALVE The aortic valve is normal in structure and function. No aortic regurgitation is present. There is no aortic valvular stenosis. There is no aortic valvular vegetation. MITRAL VALVE The mitral valve is normal in structure and function. There is no evidence of mitral valve prolapse. There is no mitral valve stenosis. There is no mitral valve regurgitation noted. TRICUSPID VALVE The tricuspid valve is normal in structure and function. There is no tricuspid valve regurgitation noted. There is no tricuspid valve prolapse or vegetation. There is no tricuspid valve stenosis. PULMONIC VALVE The pulmonary valve is normal in structure and function. There is no pulmonic valvular regurgitation. There is no pulmonic valvular stenosis. GREAT VESSELS The aortic root is normal in size. The ascending aorta is normal in size. The pulmonary artery is normal. The IVC is normal in size and collapses >50% with inspiration. PERICARDIAL EFFUSION The pericardium appears normal. There is no pleural effusion. <Conclusion> Normal Study
[2018-06-06] MEDS: Lactobacillus Acidophilus 500 MU Cap PO SCH (20:36)
--- NOTE | 2018-06-06 21:07 | CP.PCM.PN ---
Subjective - Date & Time of Evaluation Date of Evaluation: 06/06/18 Time of Evaluation: 12:30 - Subjective Subjective: clinically same Objective - Vital Signs/Intake and Output Vital Signs (last 24 hours): Temp Pulse Resp BP Pulse Ox 99.1 F 88 20 109/64 96 06/06/18 15:00 06/06/18 18:00 06/06/18 15:00 06/06/18 15:00 06/06/18 15:00 Intake and Output: 06/06/18 06/07/18 18:59 06:59 Intake Total 350 Balance 350 - Medications Medications: Current Medications Enoxaparin Sodium (Lovenox) 100 mg SC Q12 [facility] Last Admin: 06/06/18 10:51 Dose: 100 mg Ketorolac Tromethamine (Toradol) 30 mg IVP Q6 PRN PRN Reason: Pain, Mild (1-3) Lactobacillus Acidophilus (Bacid Acidophilus) 1 cap PO BID [facility] Last Admin: 06/06/18 20:36 Dose: 1 cap Morphine Sulfate (Morphine) 4 mg IVP Q6 PRN PRN Reason: Pain, moderate (4-7) Ondansetron HCl (Zofran Inj) 4 mg IVP Q6 PRN PRN Reason: Nausea/Vomiting Pantoprazole Sodium (Protonix Ec Tab) 40 mg PO DAILY [facility] Last Admin: 06/06/18 10:52 Dose: 40 mg Tamsulosin HCl (Flomax) 0.4 mg PO DAILY [facility] Last Admin: 06/06/18 10:51 Dose: 0.4 mg - Labs Labs: 06/06/18 14:07 06/06/18 14:07 - Constitutional Appears: Well - Head Exam Head Exam: ATRAUMATIC, NORMAL INSPECTION, NORMOCEPHALIC - Eye Exam Eye Exam: EOMI, Normal appearance, PERRL Pupil Exam: NORMAL ACCOMODATION, PERRL - ENT Exam ENT Exam: Mucous Membranes Moist, Normal Exam - Neck Exam Neck Exam: Full ROM, Normal Inspection. absent: Lymphadenopathy - Respiratory Exam Respiratory Exam: Decreased Breath Sounds - Cardiovascular Exam Cardiovascular Exam: REGULAR RHYTHM, +S1, +S2 - GI/Abdominal Exam GI & Abdominal Exam: Soft, Diminished Bowel Sounds - Rectal Exam Rectal Exam: Deferred
--- NOTE | 2018-06-07 07:43 | CP.PCM.PN ---
Subjective - Date & Time of Evaluation Date of Evaluation: 06/07/18 Time of Evaluation: 07:43 - Subjective Subjective: Medicine Progress Note - Dr Armando Hughes's Service Patient seen and examined at bedside. Per nursing no acute events overngiht. Patient does reports having mild left sided upper back pain. Offers no other complaints at this time. Started on Eliquis 10mg this morning for PE. He denies fevers, chills, headaches, dizziness, cp, palpitations, sob, abdominal pain, urinary symptoms, changes in bowel habits. Objective - Vital Signs/Intake and Output Vital Signs (last 24 hours): Temp Pulse Resp BP Pulse Ox 98.3 F 65 20 111/76 98 06/06/18 23:05 06/07/18 07:00 06/06/18 23:05 06/06/18 23:05 06/06/18 23:05 Intake and Output: 06/07/18 06/07/18 06:59 18:59 Intake Total 1000 Balance 1000 - Medications Medications: Current Medications Enoxaparin Sodium (Lovenox) 100 mg SC Q12 [facility] Last Admin: 06/06/18 22:20 Dose: 100 mg Ketorolac Tromethamine (Toradol) 30 mg IVP Q6 PRN PRN Reason: Pain, Mild (1-3) Lactobacillus Acidophilus (Bacid Acidophilus) 1 cap PO BID [facility] Last Admin: 06/06/18 20:36 Dose: 1 cap Morphine Sulfate (Morphine) 4 mg IVP Q6 PRN PRN Reason: Pain, moderate (4-7) Ondansetron HCl (Zofran Inj) 4 mg IVP Q6 PRN PRN Reason: Nausea/Vomiting Pantoprazole Sodium (Protonix Ec Tab) 40 mg PO DAILY [facility] Last Admin: 06/06/18 10:52 Dose: 40 mg Tamsulosin HCl (Flomax) 0.4 mg PO DAILY [facility] Last Admin: 06/06/18 10:51 Dose: 0.4 mg - Labs Labs: 06/06/18 14:07 06/06/18 14:07 - Constitutional Appears: Well, Non-toxic, No Acute Distress - Head Exam Head Exam: ATRAUMATIC, NORMAL INSPECTION, NORMOCEPHALIC - Eye Exam Eye Exam: EOMI, Normal appearance Pupil Exam: NORMAL ACCOMODATION - ENT Exam ENT Exam: Mucous Membranes Moist - Neck Exam Neck Exam: Full ROM - Respiratory Exam Respiratory Exam: Clear to Ausculation Bilateral, NORMAL BREATHING PATTERN. absent: Rales, Rhonchi, Wheezes - Cardiovascular Exam Cardiovascular Exam: REGULAR RHYTHM, +S1, +S2 - GI/Abdominal Exam GI & Abdominal Exam: Soft, Normal Bowel Sounds. absent: Guarding, Rigid, Tenderness - Extremities Exam Extremities Exam: Full ROM, Normal Inspection. absent: Calf Tenderness, Pedal Edema - Back Exam Back Exam: NORMAL INSPECTION - Neurological Exam Neurological Exam: Alert, Awake, Oriented x3 - Psychiatric Exam Psychiatric exam: Normal Affect, Normal Mood - Skin Skin Exam: Dry, Normal Color, Warm Assessment and Plan - Assessment and Plan (Free Text) Assessment: RLL Pulmonary Embolism - Stable - Hypercoaguable workup pending - Lovenox 100mg Q12 discontinued, patient started on Eliquis 10mg PO BID - CT Chest: 1. Positive pulmonary embolus right lower lobe medium and small pulmonary branches with associated possible infarct in limited subsegmental right lower lobe versus atelectasis. Linear atelectasis or fibrosis left lower lobe. 2. No evidence of significantly elevated right heart pressures. - Echo: no evidence of right heart strain (see full report) - Venous dopplers: negative for DVT (preliminary read) - Pulmonary, Dr. Flores consulted, help appreciated - Heme/Onc on consult, Dr Sullivan, help appreciated Nephrolithiasis S/P Left UVJ Replacement (05/29/18) - Abdominal Xray: L staghorn calculus vs multiple calculi within lower pole L renal collecting system (see full report) - CT Abdomen/ Pelvis (06/05/18): Double-J left ureteral stent is in situ once again at the left-sided moiety of the horseshoe kidney with distal portion terminating within urinary bladder as well. Large inferior left renal pelvis calculus unchanged in position. A wedge-shaped region of poor enhancement at the left-sided moiety may reflect lobar nephronia or possible infarct with a smaller area faintly seen immediately cephalad to it. - Discussed the case with Dr Granger, no intervention needed at this time - Encourage PO hydration - Continue Flomx 0.4mg PO daily - Urology, Dr. Leo Granger consulted, help appreciated Abnormal UA -Urine culture showing no growth -No need to treat with antibiotics at this time Transaminitis - Trending down - Abdominal US (noted on previous admission): Unremarkable - Likely secondary to antibiotics in light of recent urological procedure - Avoid any hepatoxic medications - Hepatitis panel negative - Will continue to monitor Prophylaxis - GI PPX: Protonix - DVT PPX: Eliquis 10mg PO BID DISPO: Patient is cleared for discharge home, prescriptions have been printed out. Patient to follow up with Dr Granger and Dr Armando Hughes outpatient. Plan discussed with Dr Armando Smith DO PGY-2
[2018-06-07 08:17] VITALS: BP 105/70; PULSE 75; TEMP 97.8; O2SAT 97
[2018-06-07 08:25] LABS: BASO # 0.1 K/uL (0.0-0.2); BASO % 1.1 % (0.0-2.0); EOS # 0.2 K/uL (0.0-0.7); EOS % 2.9 % (0.0-4.0); HEMOGLOBIN 14.3 g/dL (12.0-18.0); LYMPH # 2.9 K/uL (1.0-4.3); LYMPH % 40.4 % (20.0-40.0); MEAN CELL VOLUME 81.2 fL (80.0-94.0); MEAN CORPUSCULAR HEMOGLOBIN 27.6 pg (27.0-31.0); MEAN PLATELET VOLUME 6.5 fL (7.2-11.7); MONO # 0.8 K/uL (0.0-0.8); MONO % 11.7 % (0.0-10.0); NEUT # 3.1 K/uL (1.8-7.0); NEUT % 43.9 % (50.0-75.0); NRBC % 0.1 % (0.0-2.0); RBC 5.19 Mil/uL (4.40-5.90); RED CELL DISTRIBUTION WIDTH 12.9 % (11.5-14.5); WHITE BLOOD COUNT 7.1 K/uL (4.8-10.8)
[2018-06-07 08:57] LABS: ALB/GLOB RATIO 1.3 (1.0-2.1); ALBUMIN 4.2 g/dL (3.5-5.0); ALT/SGPT 114 U/L (21-72); AST/SGOT 52 U/L (17-59); BLOOD UREA NITROGEN 11 mg/dL (9-20); CALCIUM 9.6 mg/dl (8.6-10.4); GFR NON-AFRICAN AMERICAN > 60
[2018-06-07] MEDS: Lactobacillus Acidophilus 500 MU Cap PO SCH (09:15)
[2018-06-07] MEDS: Pantoprazole 40 mg EC Tab PO SCH (09:15)
--- NOTE | 2018-06-07 14:36 | VASCLAB ---
Date of service: 06/06/2018 PROCEDURE: Lower Extremity Venous Duplex Exam. HISTORY: r/o DVT PRIORS: None. TECHNIQUE: Bilateral common femoral, femoral, popliteal and posterior tibial, peroneal and great saphenous veins were evaluated. Flow was assessed with color Doppler, compressibility, assessment of phasic flow and augmentation response. Report prepared by Everett Wright, BS, RVT FINDINGS: RIGHT: 1. Common Femoral Vein: 1.1. Compressibility - Fully compressible: Thrombus - None : Flow - Phasic: Augmentation -Normal: Reflux - None. 2. Femoral Vein: 2.1. Compressibility - Fully compressible: Thrombus - None : Flow - Phasic: Augmentation -Normal: Reflux - None. 3. Popliteal Vein: 3.1. Compressibility - Fully compressible: Thrombus - None : Flow - Phasic: Augmentation -Normal: Reflux - None. 4. Posterior Tibial Vein: 4.1. Compressibility - Fully compressible: Thrombus - None: Flow - Phasic: Augmentation -Normal: Reflux - None. 5. Peroneal Vein: 5.1. Compressibility - Fully compressible: Thrombus - None: Flow - Phasic: Augmentation -Normal: Reflux - None. 6. Great Saphenous Vein: 6.1. Compressibility - Fully compressible: Thrombus - None: Flow - Phasic: Augmentation - Normal: Reflux - None. LEFT: 1. Common Femoral Vein: 1.1. Compressibility - Fully compressible: Thrombus - None: Flow - Phasic: Augmentation -Normal: Reflux - None. 2. Femoral Vein: 2.1. Compressibility - Fully compressible: Thrombus - None: Flow - Phasic: Augmentation -Normal: Reflux - None. 3. Popliteal Vein: 3.1. Compressibility - Fully compressible: Thrombus - None : Flow - Phasic: Augmentation -Normal: Reflux - None. 4. Posterior Tibial Vein: 4.1. Compressibility - Fully compressible: Thrombus - None: Flow - Phasic: Augmentation -Normal: Reflux - None. 5. Peroneal Vein: 5.1. Compressibility - Fully compressible: Thrombus - None: Flow - Phasic: Augmentation -Normal: Reflux - None. 6. Great Saphenous Vein: 6.1. Compressibility - Fully compressible: Thrombus - None: Flow - Phasic: Augmentation - Normal: Reflux - None. OTHER FINDINGS: Right: None significant. Left: None significant. IMPRESSION: Right: No evidence of deep or superficial vein thrombosis of the right lower extremity. Normal valve function noted of the right side. Left: No evidence of deep or superficial vein thrombosis of the left lower extremity. Normal valve function noted of the left side.
--- NOTE | 2018-06-07 15:22 | CP.PCM.PN ---
Subjective - Date & Time of Evaluation Date of Evaluation: 06/07/18 Time of Evaluation: 11:30 - Subjective Subjective: clinically same Objective - Vital Signs/Intake and Output Vital Signs (last 24 hours): Temp Pulse Resp BP Pulse Ox 97.8 F 75 20 105/70 97 06/07/18 07:40 06/07/18 07:40 06/07/18 07:40 06/07/18 07:40 06/07/18 07:40 Intake and Output: 06/07/18 06/07/18 06:59 18:59 Intake Total 1000 350 Balance 1000 350 - Medications Medications: Current Medications Apixaban (Eliquis) 10 mg PO Q12H [facility] Stop: 06/14/18 10:01 Last Admin: 06/07/18 10:48 Dose: 10 mg Ketorolac Tromethamine (Toradol) 30 mg IVP Q6 PRN PRN Reason: Pain, Mild (1-3) Lactobacillus Acidophilus (Bacid Acidophilus) 1 cap PO BID [facility] Last Admin: 06/07/18 09:15 Dose: 1 cap Morphine Sulfate (Morphine) 4 mg IVP Q6 PRN PRN Reason: Pain, moderate (4-7) Ondansetron HCl (Zofran Inj) 4 mg IVP Q6 PRN PRN Reason: Nausea/Vomiting Pantoprazole Sodium (Protonix Ec Tab) 40 mg PO DAILY [facility] Last Admin: 06/07/18 09:15 Dose: 40 mg Tamsulosin HCl (Flomax) 0.4 mg PO DAILY [facility] Last Admin: 06/07/18 09:16 Dose: 0.4 mg - Labs Labs: 06/07/18 08:14 06/07/18 08:14 - Constitutional Appears: Well - Head Exam Head Exam: ATRAUMATIC, NORMAL INSPECTION, NORMOCEPHALIC - Eye Exam Eye Exam: EOMI, Normal appearance, PERRL Pupil Exam: NORMAL ACCOMODATION, PERRL - ENT Exam ENT Exam: Mucous Membranes Moist, Normal Exam - Neck Exam Neck Exam: Full ROM, Normal Inspection. absent: Lymphadenopathy - Respiratory Exam Respiratory Exam: Decreased Breath Sounds - Cardiovascular Exam Cardiovascular Exam: REGULAR RHYTHM, +S1, +S2 - GI/Abdominal Exam GI & Abdominal Exam: Soft, Diminished Bowel Sounds - Rectal Exam Rectal Exam: Deferred
--- NOTE | 2018-06-07 17:28 | PCM.URO ---
Urology Progress Note - Objective Lab Studies: Reviewed (xray reviewed pt with large stone fragments no gu treatment now -- suggest percutaneous rx dictated) Lab Results Last 24 Hours: Laboratory Results - last 24 hr 06/07/18 06/07/18 08:14 08:14 WBC 7.1 RBC 5.19 Hgb 14.3 Hct 42.2 MCV 81.2 MCH 27.6 MCHC 34.0 RDW 12.9 Plt Count 381 MPV 6.5 L Neut % (Auto) 43.9 L Lymph % (Auto) 40.4 H Leon % (Auto) 11.7 H Eos % (Auto) 2.9 Baso % (Auto) 1.1 Neut # (Auto) 3.1 Lymph # (Auto) 2.9 Leon # (Auto) 0.8 Eos # (Auto) 0.2 Baso # (Auto) 0.1 Sodium 140 Potassium 4.2 Chloride 104 Carbon Dioxide 26 Anion Gap 14 BUN 11 Creatinine 1.0 Est GFR ( Amer) > 60 Est GFR (Non-Af Amer) > 60 Random Glucose 105 D Calcium 9.6 Total Bilirubin 0.7 AST 52 ALT 114 H Alkaline Phosphatase 182 H Total Protein 7.5 Albumin 4.2 Globulin 3.3 Albumin/Globulin Ratio 1.3 Intake & Output: Intake & Output 06/06/18 06/07/18 06/07/18 18:59 06:59 18:59 Intake Total 350 1000 350 Balance 350 1000 350 Intake: Oral 350 1000 350 Other: # Voids Urine, Voided 2 3 3 # Bowel Movements 1 0 2 Vital Signs: Vital Signs - 24 hr 06/06/18 06/06/18 06/07/18 18:00 23:05 00:15 Temperature 98.3 F Pulse Rate 88 74 67 Respiratory 20 Rate Blood Pressure 111/76 O2 Sat by Pulse 98 Oximetry 06/07/18 06/07/18 07:00 07:40 Temperature 97.8 F Pulse Rate 65 75 Respiratory 20 Rate Blood Pressure 105/70 O2 Sat by Pulse 97 Oximetry
--- NOTE | 2018-06-07 23:03 | CP.PCM.CON ---
History of Present Illness - History of Present Illness History of Present Illness: Pulmonary Consult, Covering Dr Flores The patient was Seen/interviewed and examined by me at the bedside, Medical records reviewed and Management issues were discussed and formulated with the house staff. Events reviewed Past Patient History - Past Medical History & Family History Past Medical History?: Yes - Past Social History Smoking Status: Never Smoked - RENAL Hx Kidney Stones: Yes - MUSCULOSKELETAL/RHEUMATOLOGICAL Hx Falls: No - GENITOURINARY/GYNECOLOGICAL Hx Bladder Stone: Yes - PSYCHIATRIC Hx Substance Use: No - SURGICAL HISTORY Hx Surgeries: No - ANESTHESIA Hx Anesthesia: No Meds Home Medications: Home Medication List Medication Instructions Recorded Confirmed Type Apixaban [Eliquis] 5 mg PO Q12H #60 tab 06/07/18 Rx Apixaban [Eliquis] 10 mg PO Q12H #13 tab 06/07/18 Rx Tamsulosin HCl [Flomax] 0.4 mg PO DAILY #30 cap.er.24h 06/07/18 Rx Allergies/Adverse Reactions: Allergies Allergy/AdvReac Type Severity Reaction Status Date / Time moxifloxacin [From Avelox] Allergy REDNESS Verified 06/06/18 13:33 Results - Vital Signs Recent Vital Signs: Last Vital Signs Temp 97.8 F 06/07/18 07:40 Pulse 75 06/07/18 07:40 Resp 20 06/07/18 07:40 BP 105/70 06/07/18 07:40 Pulse Ox 97 06/07/18 07:40 - Labs Result Diagrams: 06/07/18 08:14 06/07/18 08:14 Labs: Laboratory Results - last 24 hr 06/07/18 06/07/18 08:14 08:14 WBC 7.1 RBC 5.19 Hgb 14.3 Hct 42.2 MCV 81.2 MCH 27.6 MCHC 34.0 RDW 12.9 Plt Count 381 MPV 6.5 L Neut % (Auto) 43.9 L Lymph % (Auto) 40.4 H [place] % (Auto) 11.7 H Eos % (Auto) 2.9 Baso % (Auto) 1.1 Neut # (Auto) 3.1 Lymph # (Auto) 2.9 [place] # (Auto) 0.8 Eos # (Auto) 0.2 Baso # (Auto) 0.1 Sodium 140 Potassium 4.2 Chloride 104 Carbon Dioxide 26 Anion Gap 14 BUN 11 Creatinine 1.0 Est GFR ( Amer) > 60 Est GFR (Non-Af Amer) > 60 Random Glucose 105 D Calcium 9.6 Total Bilirubin 0.7 AST 52 ALT 114 H Alkaline Phosphatase 182 H Total Protein 7.5 Albumin 4.2 Globulin 3.3 Albumin/Globulin Ratio 1.3
== END 2018-06-07 16:00 | disposition home or self-care (01) | DRG 176 ==
LOC: C.ER 03:09 → C.9E 11:38 → C.6T 13:00
PROVIDERS: ADMIT Internal Medicine Nephrology; ATTEND Internal Medicine Nephrology
DX: I26.99 Other pulmonary embolism without acute cor pulmonale (principal); J98.11 Atelectasis; N39.0 Urinary tract infection, site not specified; N20.0 Calculus of kidney

== ENCOUNTER 2018-08-21 11:34 | Day surgery (SDC) | payer OTHER ==
[2018-08-21 11:34] VITALS: BMI 29.8
--- NOTE | 2018-08-21 11:52 | C.PDOC ---
History Of Present Illness 28 y/o male,w/PMhx of PE currently on eliquis, lithotripsy, ureteral stent presents to the ER complaining of abdominal discomfort and blood in urine which has been present for the past 3 days. Patient states that he has left ureteral stent which was placed by Dr. Reyna Granger 3 months ago. Patient reports that Dr.E Granger referred him to the ER for removal of stent. Denies having fever,chills, night sweats, headache, CP,SOB, nausea, vomiting, back pain, and dysuria. Time Seen by Provider: 08/21/18 11:49 Chief Complaint (Nursing): Male Genitourinary History Per: Patient History/Exam Limitations: no limitations Onset/Duration Of Symptoms: Days Current Symptoms Are (Timing): Still Present Severity: Moderate Past Medical History Reviewed: Historical Data, Nursing Documentation, Vital Signs Vital Signs: Last Vital Signs Temp 98.6 F 08/21/18 11:36 Pulse 73 08/21/18 11:36 Resp 20 08/21/18 11:36 BP 124/76 08/21/18 11:36 Pulse Ox 99 08/21/18 11:36 - Medical History PMH: Kidney Stones Surgical History: No Surg Hx Family History: States: No Known Family Hx - Social History Hx Alcohol Use: No Hx Substance Use: No Review Of Systems Constitutional: Negative for: Fever, Chills, Sweats, Weakness, Malaise, Weight loss Eyes: Negative for: Pain, Vision Change, Conjunctivae Inflammation, Eyelid Inflammation, Redness ENT: Positive for: Ear Pain. Negative for: Ear Discharge, Nose Pain, Nose D ischarge, Nose Congestion, Mouth Pain, Mouth Swelling, Throat Pain Cardiovascular: Negative for: Chest Pain, Palpitations, Orthopnea, Edema, Light Headedness Respiratory: Negative for: Cough, Shortness of Breath, Hemoptysis, SOB with Excertion, Pleuritic Pain, Wheezing Gastrointestinal: Positive for: Abdominal Pain. Negative for: Nausea, Vomiting, Diarrhea, Constipation, Melena, Hematochezia, Hematemesis Genitourinary: Positive for: Hematuria. Negative for: Dysuria, Frequency, Incontinence, Penile Discharge, Scrotal Pain, Rash Musculoskeletal: Negative for: Neck Pain, Shoulder Pain, Arm Pain, Back Pain Skin: Negative for: Rash, Lesions Neurological: Negative for: Headache Physical Exam - Physical Exam Appears: Non-toxic, No Acute Distress Skin: Warm, Dry Head: Atraumatic, Normacephalic Eye(s): bilateral: Normal Inspection, PERRL, EOMI Ear(s): Bilateral: Normal Nose: Normal Oral Mucosa: Moist Lips: Normal Appearing Gingiva: Normal Appearing Throat: Normal, No Erythema, No Exudate Neck: Supple, Other (no meningeal signs) Chest: Symmetrical Cardiovascular: Rhythm Regular Respiratory: Normal Breath Sounds, No Rales, No Rhonchi, No Wheezing Gastrointestinal/Abdominal: Normal Exam, Soft, No Tenderness, No Guarding, No Rebound Back: Normal Inspection, No CVA Tenderness, No Vertebral Tenderness, No Decreased ROM, No Muscle Spasm, No Paraspinal Tenderness Extremity: Normal ROM, No Tenderness, No Pedal Edema, No Swelling Neurological/Psych: Oriented x3, Normal Speech, Normal Motor Gait: Steady ED Course And Treatment - Laboratory Results Result Diagrams: 08/21/18 14:00 08/21/18 14:00 O2 Sat by Pulse Oximetry: 99 (RA) Pulse Ox Interpretation: Normal Medical Decision Making Medical Decision Makin28 y/o male,w/PMhx of PE, lithotripsy, and laser surgery ( kidney stone removal), presents to the ER complaining of abdominal discomfort and blood in urine which has been present for the past 3 days. No abdominal tenderness on exa m. No rashes or ulcers or abnormal penile discharge. No fall or trauma. Plan: --Labs --UA 1436 No UTI on labs Labs largely unremarkable Pt in [facility] Apprciate consult w/ Dr. Reyna Granger: to place pt in [facility] under his service for OR procedure NPO, pt agreeable to plan Disposition - Disposition Disposition Time: 14:35 Condition: STABLE - Clinical Impression Clinical Impression: History of ureter stent - Scribe Statement The provider has reviewed the documentation as recorded by the Chela Wesley Provider Attestation: All medical record entries made by the Chela were at my direction and personally dictated by me. I have reviewed the chart and agree that the record accurately reflects my personal performance of the history, physical exam, medical decision making, and the department course for this patient. I have also personally directed, reviewed, and agree with the discharge instructions and disposition.
[2018-08-21 14:05] LABS: BASO # 0.1 K/uL (0.0-0.2); BASO % 1.4 % (0.0-2.0); EOS # 0.1 K/uL (0.0-0.7); EOS % 1.7 % (0.0-4.0); LYMPH % 44.8 % (20.0-40.0); MEAN CELL VOLUME 82.4 fL (80.0-94.0); MEAN CORPUSCULAR HEMOGLOBIN 27.3 pg (27.0-31.0); MEAN CORPUSCULAR HGB CONC 33.2 g/dL (33.0-37.0); MEAN PLATELET VOLUME 7.2 fL (7.2-11.7); MONO # 0.6 K/uL (0.0-0.8); MONO % 9.2 % (0.0-10.0); NEUT # 2.9 K/uL (1.8-7.0); NEUT % 42.9 % (50.0-75.0); NRBC % 0.1 % (0.0-2.0); RBC 6.02 Mil/uL (4.40-5.90); RED CELL DISTRIBUTION WIDTH 13.8 % (11.5-14.5); WHITE BLOOD COUNT 6.7 K/uL (4.8-10.8)
[2018-08-21 14:07] LABS: HEMOGLOBIN 16.5 g/dL (12.0-18.0)
[2018-08-21 14:17] LABS: INR 1.4; SQUAMOUS EPITHIAL < 1 /hpf (0-5); URINE BILIRUBIN NEGATIVE (NEGATIVE); URINE BLOOD 2+ (NEGATIVE); URINE CLARITY Clear (Clear); URINE COLOR Yellow (YELLOW); URINE GLUCOSE (UA) NORMAL (Normal); URINE LEUKOCYTE ESTERASE 1+ Leu/uL (Negative); URINE PROTEIN NEGATIVE (NEGATIVE); URINE UROBILINOGEN NORMAL mg/dL (0.2-1.0)
[2018-08-21 14:24] LABS: ALB/GLOB RATIO 1.4 (1.0-2.1); ALBUMIN 5.1 g/dL (3.5-5.0); ALT/SGPT 34 U/L (21-72); AST/SGOT 49 U/L (17-59); BLOOD UREA NITROGEN 14 mg/dL (9-20); CALCIUM 9.8 mg/dl (8.6-10.4); GFR NON-AFRICAN AMERICAN > 60
[2018-08-21] MEDS ORDERED: Sodium Chloride 0.9% 1,000 ML IV SCH (14:45)
[2018-08-21] MEDS ORDERED: Sodium Chloride 0.9% 1,000 ML ONE (14:47)
--- NOTE | 2018-08-21 15:54 | RAD ---
Date of service: 08/21/2018 HISTORY: stent COMPARISON: 06/06/2018 FINDINGS: BOWEL: Mild stool presence-no bowel obstruction. BONES: Normal. OTHER FINDINGS: Left ureteral stent double-J in place proximal estimated in in left intrarenal pelvis. Distal estimated left side of bladder left hemipelvic calcifications inferred as tiny phleboliths are similar. No interval ureteral calculi along the left ureteral stent. The conglomerate of calculi calculus burden over the left mid and lower pole intrarenal collecting systems is similar. Casting of calculi are partially suggested. IMPRESSION: No interval change of the left-sided calculus burden as detailed above. Left ureteral stent in place.
[2018-08-21] MEDS ORDERED: Propofol 10 mg/ml Inj (20 ML) ONE ×3 (16:43→17:28)
[2018-08-21] MEDS ORDERED: cefTRIAXone 1 gm 1 GM/100 ML BAG IVPB ONE (16:45)
[2018-08-21] MEDS ORDERED: Iohexol 240 (50 ml) ONE (16:45)
[2018-08-21] MEDS ORDERED: Oxycodone/Acetaminophen 5/325 mg Tab PO PRN (17:04)
[2018-08-21] MEDS ORDERED: Midazolam 2 MG/2 ML VIAL ONE (17:14)
[2018-08-21] MEDS ORDERED: HYDROmorphone 0.5 mg/0.5 ml ISec IVP PRN (17:55)
[2018-08-21 20:06] VITALS: O2SAT 99
[2018-08-21 20:11] VITALS: BP 105/62; PULSE 61; RESP 15; TEMP 97.3
--- NOTE | 2018-08-22 13:41 | RAD ---
Date of service: 08/21/2018 HISTORY: Urolithiasis COMPARISON: Abdominal radiograph performed 08/21/18 FINDINGS: BOWEL: Nonobstructive bowel gas pattern. BONES: Mild curvature of the lumbar spine convex the left. No acute osseous abnormality is detected. OTHER FINDINGS: Large conglomeration of calculi noted overlying the expected location of the left renal shadow the level of L2-L3. IMPRESSION: Large conglomeration of left-sided calcifications overlying the expected location of the left renal shadow the level of L2-L3
--- NOTE | 2018-08-22 20:57 | HP ---
Emergency admission through the ER on Mr. Reynolds. A very pleasant gentleman with gross hematuria, admitted with gross hematuria and stent discomfort and retained stent, here we are admitting him through the ER to change his stent. HISTORY OF PRESENT ILLNESS: A very pleasant gentleman who has a gigantic stone burden, who in the middle of treatment developed a pulmonary embolus, who is now on Eliquis, and therefore, we disrupted his treatment for his stone, awaiting for this to stop. It sounds like he is not going to his doctor on a regular basis to have the prescription and the medication and he spoke to soon and we were hoping that we would be able to not change his stent; however, at this point, the patient is very much in plenty of stent pain and lot of discomfort, blood in the urine, said he would for a little while, but now he has even stopped exercising, so having discussed all the various options with the patient, we are bringing him in today as an emergency through the ER. The KUB showed the stent to be in good location and it does not look like there is any ureteral stone. because I was planning to just change the stent, but the plans have changed now since the patient has come up . The past medical and surgical listed above, and other than the pulmonary embolus, the patient without any other significant medical history. It sounds like he is not currently being followed by bush [employer] or by even regular medical doctors. I encouraged him to return to his doctors. Socially, he lives with his who is supportive of his care and . Otherwise unremarkable social history. REVIEW OF SYSTEMS: As listed above. PHYSICAL EXAMINATION: GENERAL: Well-developed male. He is currently resting comfortably on the stretcher. VITAL SIGNS: Within normal limits. LUNGS: Clear. HEART: Normal S1 and S2. ABDOMEN: Overall soft, nontender. No CVA tenderness noted. GENITOURINARY: Normal phallus. No testicular masses. RECTAL: Deferred for now cysto, but I mentioned now 10 to 20 g soft prostate, no issues. LABORATORY DATA: See chart. KUB revealed the stent in the location, I do not see any ureteral stone, and we note the presence of the stent curl properly in the kidney and the bladder. So, the diagnosis is gigantic stone burden, it looks like many broken stones. The stone does not look much different. I had the chance to look at the actual film, but the report of the film does not look very different than in 05/2018. So, the diagnosis then is gross hematuria, retained stent with the plan of retained stent, hematuria and stent discomfort in a patient who has with pulmonary embolus. ASSESSMENT AND PLAN: So at this point, we discussed various options. I think changing the stent makes more sense, but the patient wants a stent holiday, he wants that the stent be removed altogether. We discussed other ways of treating the stones anyway percutaneous process, nephrostomy tube, and percutaneous nephrolithotomy. I discussed whether I would do or whether he will go. I mentioned him about other doctors, particularly a doctor near [place], but for today , we are going to provide the patient some antibiotic prophylaxis and we are going to plan for a cysto stent removal. We weighed back and forth with the patient and with the . The would actually recommend a change in stent, but the patient would want to give it an option, so I explained to him that the stones may not pass and they may just stay up in the kidney and then it does not get obstructed again and then we can wait to ease off the Eliquis, which is going to be soon and then we can make recommendation again. The alternative is just to change in stent, and if the patient will feel better and if he needs the stent back in, at least that he gave it a shot and is not just walking off with the stent because the stent caused a lot of discomfort. I did explain to him, I showed pictures and we took pictures with the on the computer screen and a lot of stone burden and its broken stones, so it is unlikely that he will be able to pass all the stones. If he develops Steinstrasse, then he need the stent back in, we can put it back in. I explained to him there is a risk anyway that too many stones come and we will not be able to get the stent back in with any of the nephrostomy tube, but that may be anyway appropriate. The issue would be the Eliquis and bleeding concerns, etc., but either way, the patient wants to give it a try, so the plan is as follows; 1. Antibiotic prophylaxis. 2. Emergency admission. 3. Cystoscopy removal of the stent and followup. Dominik Granger MD
--- NOTE | 2018-08-22 20:59 | OP ---
PROCEDURE DATE: 08/21/2018 PREOPERATIVE DIAGNOSES: Heavy stone burden, urolithiasis, hematuria, stent, gross hematuria, and voiding dysfunction. POSTOPERATIVE DIAGNOSES: Heavy stone burden, urolithiasis, hematuria, stent, , gross hematuria, and voiding dysfunction. PROCEDURE: Cystoscopy, removal of double-J stent, and a KUB. SURGEON: Dominik Granger MD COMPLICATIONS: There were no complications. ESTIMATED BLOOD LOSS: Less than 10 mL. FINDINGS: 1. Tremendous heavy stone burden up in the kidney. I do not see any urethral stone. 2. There is little calcification, but it does not seem that they are in the ureter and the stent was removed without difficulty, what appear near the iliac crest, may not be stones. We will see the patient's other notes, but otherwise today the procedure is cystoscopy and the removal of double-J stent on the left side and there were no complications. DESCRIPTION OF PROCEDURE: After obtaining informed consent, the patient was placed on the table. Routine monitors were placed. Time-out was called to confirm the patient positioning. We introduced the cystoscope via the urethra. We identified the old stent and removed it without difficulty, really removed it fairly easily and then examination of the stent was an 8-Slovenian double-J stent. That is a fairly sizeable stent. I did replace the stent, but I would think if the patient verbalized discomfort, perhaps a small stent may be helpful for the patient. Hopefully, I will examine clinically and then we will decide. We need the stent back in, this was definitely an 8-Slovenian and sent it down to the lab actually for further examination. I did check my record as to the place we got the stent because most of the time we used a 6-Slovenian, sometimes a 5-Slovenian or 4.7 and an 8-Slovenian stent is not our most common used stent and now I have got to review the records in this regard. Perhaps this is why there was discomfort, but we will see while the stone burden perhaps would not be appropriate, we will have to try to decide . Dominik Granger MD [facility] # [id number]
== END 2018-08-21 19:05 | disposition home or self-care (01) ==
LOC: C.SDS 11:34 → C.ER 11:34 → C.SDS 16:45
PROVIDERS: ATTEND Urology
DX: N20.0 Calculus of kidney (principal); R31.0 Gross hematuria; T83.89XA Other specified complication of genitourinary prosthetic devices, implants and grafts, initial encounter; Y73.1 Therapeutic (nonsurgical) and rehabilitative gastroenterology and urology devices associated with adverse incidents; Z79.01 Long term (current) use of anticoagulants; Z87.442 Personal history of urinary calculi; Z86.711 Personal history of pulmonary embolism
CPT/HCPCS: 52310; 74018; 80053; 81001; 85025; 85610; 85730; 86850; 86900; 88300; 96374; 99285; J0696; J1885; J7030